=== PATIENT | male | born 1950 | race Caucasian/White ===

== ENCOUNTER 2023-06-08 06:49 | Inpatient (IN) ==
--- NOTE | 2023-06-08 07:19 | Emergency Department Note ---
Impression & Plan Acute GI bleeding ED Provider Note NAME: JACLYN VALDEZ AGE: 72 SEX: Male INFORMANT: Patient ED PROVIDER(S): Travis Johnston MD CHIEF COMPLAINT: GI bleed PLAN: Disposition: Admitted Outpatient prescription management: none Referral: None MEDICAL DECISION MAKING: Patient presented because a history of GI bleed. Record review indicated he had a bleed while on Eliquis last year. Patient was transfused at that time. Patient is hemodynamically stable. He did have a bloody bowel movement in the emergency department. Patient had labs obtained. ECG showed a sinus rhythm. Consultation was made with the [facility] hospitalist. Case discussed. Patient will be admitted for further management CT imaging did show some possible intraluminal bleeding within the colon. Care/management discussed with: central supply manager Level of care consideration(s): After review of the information above and other included data, I feel the patient requires escalation of care to admission. Triage Nursing notes: reviewed and agree them. Vital Signs: reviewed and remarkable for no significant abnormalities Additional History obtained from: none Chronic Medical/Social Conditions affecting care: Plavix use, history of GI bleed Prior/ Outside/ External records reviewed: none Differential Diagnosis: Diverticulosis, AVM, coagulopathy, colitis, inflammatory bowel disease, malignancy, Clair-Walters tear, esophagitis, peptic ulcer disease, variceal bleed, gastritis, epistaxis, fissure, hemorrhoids, as well as other pathologies. Diagnostics, independently interpreted by me: ECG: Twelve-lead ECG reveals a normal sinus rhythm at 64 bpm right bundle branch block. No ST elevation Cardiac Monitoring: Cardiac monitoring ordered by me: The patient was placed on continuous cardiac monitoring and observed. It revealed a normal sinus rhythm at 68 beats per minute without ectopy or evidence of dysrhythmia. Medical decision rules: none Imaging studies: I refer you to the EMR for further details. HPI: 72 year old Male arrives for evaluation of rectal bleeding. This started this morning. Patient states that he had a moderately loose bloody bowel movement. Patient had a second episode after arrival here. He has a history of GI bleed requiring transfusion. At that point he was on Eliquis. He is no longer on Eliquis as he had a watchman placed. Patient states he had some abdominal cramping but denies any other complaints. Discomfort was rated at 2/10. Pt denies LOC, headache, fevers, chills, diaphoresis, visual changes, neck pain, chest pain, breathing difficulties, nausea, vomiting, abdominal pain, back pain, melena, urinary symptoms, numbness, weakness, lymphadenopathy, rash, or other complaints. PAST MEDICAL HISTORY: See Below, A-fib, GI bleed PAST SURGICAL HISTORY: See Below, SOCIAL HISTORY: See Below, HOME MEDICATIONS: See Below ALLERGIES: See Below VITALS: See Below PHYSICAL EXAMINATION: GENERAL: Awake, alert, well-appearing, in no distress HENT: Normocephalic, atraumatic. Oropharynx unremarkable. EYES: Normal conjunctiva. Sclera non-icteric. NECK: Inspection normal. Non-tender. Supple. No nuchal rigidity. FROM. No masses. RESPIRATORY: Clear to auscultation. No wheezes. No rales. Normal respiratory effort. CARDIAC: Normal rate. Normal rhythm. No murmurs. No rubs. Extremities warm and well perfused. Pulses equal. No JVD. GI: Soft, non-distended. No tenderness to palpation. No rebound or guarding. No masses. RECTAL: Deferred. Hemoccult s positive stool MUSCULOSKELETAL: Atraumatic. Chest examination reveals no tenderness. The back is symmetrical on inspection without obvious abnormality. There is no CVA tenderness to palpation. No joint edema. LOWER EXTREMITIES: Calves are equal size bilaterally and non-tender. No edema. No discoloration. NEURO: Normal sensorium. No sensory or motor deficits noted. SKIN: No rash or jaundice noted. PROCEDURES: none CRITICAL CARE: none OBSERVATION NOTE: none Past Med/Surg History Social History Smoking Status: Never smoker Hx Alcohol Use: No Hx Substance Use: No Preferred Language: Ivorian Communication Ability: Effective Vamp Throater Required: No Beliefs That Will Affect Care: None Current Living Situation: Spouse Feels Safe at Home: Yes Safety Concerns: Feels Safe At This Time Allergies Allergies Allergy/AdvReac Type Severity Reaction Status Date / Time [place]gton-NXP-GyS Reductase AdvReac Unknown Verified 04/02/23 14:30 Inhibitor Home Meds Home Medications Medication Instructions Recorded Confirmed aspirin 81 mg tablet,delayed 81 mg PO DAILY 04/02/23 06/08/23 release (Adult Aspirin Regimen) blood-glucose sensor (Dexcom G6 04/02/23 04/02/23 Sensor device) clopidogrel 75 mg tablet (Plavix) 75 mg PO DAILY 04/02/23 06/08/23 diltiazem HCl 180 mg 180 mg PO DAILY 04/02/23 06/08/23 capsule,extended release 24 hr ezetimibe 10 mg tablet (Zetia) 10 mg PO DAILY 04/02/23 06/08/23 fluorouracil 5 % topical cream 1 applic topical BID 04/02/23 06/08/23 (Efudex) insulin glargine 100 unit/mL 20 unit subcut DAILY 04/02/23 06/08/23 subcutaneous solution levothyroxine 25 mcg capsule 25 mcg PO DAILY 04/02/23 06/08/23 losartan 25 mg tablet 25 mg PO DAILY 04/02/23 06/08/23 montelukast 10 mg tablet 10 mg PO DAILY 04/02/23 06/08/23 sotalol 80 mg tablet 80 mg PO BID 04/02/23 06/08/23 tamsulosin 0.4 mg capsule 0.4 mg PO DAILY 04/02/23 06/08/23 albuterol sulfate 90 mcg/actuation See Rx Instructions .Route .COMPLEX 06/08/23 06/08/23 aerosol inhaler fluticasone 250 mcg-salmeterol 50 1 inh inhalation AMHS 06/08/23 06/08/23 mcg/dose blistr powdr for inhalation Previous Rx's Medication Instructions Recorded lorazepam 1 mg tablet 1 mg PO DAILY PRN Pre vasectomy 04/23/23 procedure #1 tab finasteride 5 mg tablet 5 mg PO DAILY #90 tabs 06/05/23 Results & Data (ED) Vital Signs Vital Signs - 24 hr 06/08/23 06:58 06/08/23 07:07 06/08/23 07:55 Temperature 36.8 C Temperature Source Temporal Artery Scan Pulse Rate 68 70 Pulse Rate from SpO2 Sensor 69 Respiratory Rate 14 18 Respiratory Effort / Characteristics Non-Labored Spontaneous Respiratory Depth Normal Blood Pressure 157/84 H Blood Pressure Mean 108 Pulse Oximetry 99 98 99 Oxygen Delivery Method Room Air Room Air Sepsis New/Unexplained Change in Mental Status No Sepsis Action Taken by Nursing No Action Required 06/08/23 08:00 06/08/23 08:22 06/08/23 08:30 Temperature Temperature Source Pulse Rate 66 73 73 Pulse Rate from SpO2 Sensor 66 Respiratory Rate 14 12 19 Respiratory Effort / Characteristics Respiratory Depth Blood Pressure Blood Pressure Mean Pulse Oximetry 99 Oxygen Delivery Method Sepsis New/Unexplained Change in Mental Status Sepsis Action Taken by Nursing 06/08/23 08:35 Temperature Temperature Source Pulse Rate 76 Pulse Rate from SpO2 Sensor Respiratory Rate Respiratory Effort / Characteristics Respiratory Depth Blood Pressure Blood Pressure Mean Pulse Oximetry Oxygen Delivery Method Sepsis New/Unexplained Change in Mental Status Sepsis Action Taken by Nursing Laboratory Data 06/08/23 14:22 06/08/23 07:06 Lab Results 06/08/23 06/08/23 06/08/23 Range/Units 07:06 07:07 07:28 WBC 7.73 (4.8-10.8) K/ul RBC 4.45 L (4.70-6.10) M/uL Hgb 13.7 L (14.0-18.0) g/dl Hct 39.6 L (42.0-52.0) % MCV 89.0 (80.0-100.0) fL MCH 30.8 (25.0-34.0) pg MCHC 34.6 (32.0-36.0) g/dL RDW Std Deviation 45.7 (36.4-46.3) fL RDW Coeff of Lance 13.9 (11.5-14.5) % Plt Count 221 (130-400) K/uL MPV 9.2 L (9.4-12.4) fL Immature Gran % (Auto) 0.4 % Neut % (Auto) 59.1 % Lymph % (Auto) 22.3 % [place] % (Auto) 8.9 % Eos % (Auto) 7.6 % Baso % (Auto) 1.7 % Neut # (Auto) 4.57 (1.40-6.50) K/uL Lymph # (Auto) 1.72 (1.20-3.40) K/uL [place] # (Auto) 0.69 H (0.11-0.59) K/uL Eos # (Auto) 0.59 H (0.00-0.50) K/uL Baso # (Auto) 0.13 (0.00-0.20) K/uL Immature Gran # (Auto) 0.03 (0.01-0.20) K/uL PT 10.9 (9.0-12.0) Seconds INR 1.0 (0.9-1.1) APTT 28 (21-31) Seconds PTT Ratio 1.0 Sodium 132 L (136-145) mmol/L Potassium 4.3 (3.5-5.1) mmol/L Chloride 98 (98-107) mmol/L Carbon Dioxide 27 (21-32) mmol/L Anion Gap 7 (3-11) BUN 28 H (6-23) mg/dl Creatinine 0.86 (0.6-1.4) mg/dl Est Cr Clr Drug Dosing 68.5 ml/min Est GFR ( Amer) 101.1 ml/min Est GFR (Non-Af Amer) 87.2 ml/min BUN/Creatinine Ratio 32.6 H (10-20) Glucose 181 H (70-99(Fasting)) mg/dl Calcium 9.2 (8.6-10.3) mg/dl Total Bilirubin 0.5 (0.2-1.0) mg/dl AST 13 (13-39) U/L ALT 13 (7-52) U/L Alkaline Phosphatase 52 (34-104) U/L Total Protein 7.2 (6.0-8.3) gm/dl Albumin 4.4 (3.4-5.0) gm/dl Globulin 2.8 (2.5-4.0) gm/dl Albumin/Globulin Ratio 1.6 (0.9-2) POC Stool Occult Blood Positive A (Negative) Blood Type B Positive Blood Type Recheck Antibody Screen NEGATIVE Crossmatch See Detail 06/08/23 Range/Units 08:22 WBC (4.8-10.8) K/ul RBC (4.70-6.10) M/uL Hgb (14.0-18.0) g/dl Hct (42.0-52.0) % MCV (80.0-100.0) fL MCH (25.0-34.0) pg MCHC (32.0-36.0) g/dL RDW Std Deviation (36.4-46.3) fL RDW Coeff of Lance (11.5-14.5) % Plt Count (130-400) K/uL MPV (9.4-12.4) fL Immature Gran % (Auto) % Neut % (Auto) % Lymph % (Auto) % [place] % (Auto) % Eos % (Auto) % Baso % (Auto) % Neut # (Auto) (1.40-6.50) K/uL Lymph # (Auto) (1.20-3.40) K/uL [place] # (Auto) (0.11-0.59) K/uL Eos # (Auto) (0.00-0.50) K/uL Baso # (Auto) (0.00-0.20) K/uL Immature Gran # (Auto) (0.01-0.20) K/uL PT (9.0-12.0) Seconds INR (0.9-1.1) APTT (21-31) Seconds PTT Ratio Sodium (136-145) mmol/L Potassium (3.5-5.1) mmol/L Chloride (98-107) mmol/L Carbon Dioxide (21-32) mmol/L Anion Gap (3-11) BUN (6-23) mg/dl Creatinine (0.6-1.4) mg/dl Est Cr Clr Drug Dosing ml/min Est GFR ( Amer) ml/min Est GFR (Non-Af Amer) ml/min BUN/Creatinine Ratio (10-20) Glucose (70-99(Fasting)) mg/dl Calcium (8.6-10.3) mg/dl Total Bilirubin (0.2-1.0) mg/dl AST (13-39) U/L ALT (7-52) U/L Alkaline Phosphatase (34-104) U/L Total Protein (6.0-8.3) gm/dl Albumin (3.4-5.0) gm/dl Globulin (2.5-4.0) gm/dl Albumin/Globulin Ratio (0.9-2) POC Stool Occult Blood (Negative) Blood Type Blood Type Recheck B Positive Antibody Screen Crossmatch Administered Medications Diltiazem HCl (Diltiazem Hcl 180 Mg Capcr) 180 mg PO DAILY [facility] Stop: 07/08/23 10:59 Last Admin: 06/08/23 13:18 Dose: 180 mg Documented By: Karey Ezetimibe (Ezetimibe 10 Mg Tab) 10 mg PO DAILY RENETTA Stop: 07/08/23 10:29 Last Admin: 06/08/23 13:19 Dose: 10 mg Documented By: JABARI Finasteride (Finasteride 5 Mg Tab) 5 mg PO DAILY R[facility]ETTA Stop: 07/08/23 10:29 Last Admin: 06/08/23 13:18 Dose: 5 mg Documented By: JABARI Pantoprazole Sodium 40 mg/ (Dextrose) 100 mls @ 20 mls/hr IV Q5H RENETTA Stop: 07/08/23 08:29 Last Admin: 06/08/23 13:33 Dose: 8 mg/hr, 20 mls/hr Documented By: Infusion: 06/08/23 13:33 Dose: Infused Documented By: Admin: 06/08/23 09:12 Dose: 8 mg/hr, 20 mls/hr Documented By: VIOLA Levothyroxine Sodium (Levothyroxine Sodium 25 Mcg Tablet) 25 mcg PO DAILYBB RENETTA Stop: 07/08/23 10:29 Last Admin: 06/08/23 13:19 Dose: 25 mcg Documented By: JABARI Sotalol HCl (Sotalol Hcl 80 Mg Tab) 40 mg PO BID RENETTA Stop: 07/08/23 10:29 Last Admin: 06/08/23 13:18 Dose: 40 mg Documented By: JABARI Discontinued Medications Sodium Chloride (Nss) 1,000 mls @ 125 mls/hr IV .Q8H STA Stop: 06/08/23 15:11 Last Admin: 06/08/23 07:37 Dose: 125 mls/hr Documented By: VIOLA Famotidine (Pepcid 20mg Iv Push) 20 mg in 5 mls @ 2.5 mls/min IV NOW STA Stop: 06/08/23 08:04 Last Admin: 06/08/23 08:48 Dose: 2.5 mls/min Documented By: VIOLA Pantoprazole Sodium 80 mg/ (Dextrose) 120 mls @ 480 mls/hr IV NOW ONE Stop: 06/08/23 08:17 Last Infusion: 06/08/23 09:20 Dose: Infused Documented By: Admin: 06/08/23 08:49 Dose: 480 mls/hr Documented By: VIOLA Ioversol (Optiray 320 100ml) 93 ml IV ONCE ONE Stop: 06/08/23 08:19 Last Admin: 06/08/23 08:18 Dose: 93 ml Documented By: GEGE Ioversol (Optiray 320 125ml) 119 ml IV ONCE ONE Stop: 06/08/23 12:22 Last Admin: 06/08/23 12:22 Dose: 119 ml Documented By: HERMINIO Pantoprazole Sodium (Pantoprazole Bolus/Drip) 1 each IV NOW STA Stop: 06/08/23 08:04 Last Admin: 06/08/23 09:12 Dose: Not Given Documented By: VIOLA Imaging Data Radiologist's Impression: Abdomen/Pelvis CT 06/08/23 07:[address] WITH IV CONTRAST CT DOSE: 850.01 mGy.cm HISTORY: GI bleed. TECHNIQUE: Multiaxial CT images of the abdomen and pelvis were performed following the use of intravenous contrast. A dose lowering technique was utilized adhering to the principles of ALARA. COMPARISON STUDY: None. FINDINGS: The lung bases are clear. No pneumoperitoneum. No pneumatosis. Levoscoliosis and degenerative changes seen within the lumbar spine. Mitral annulus and coronary artery calcifications are noted. Mild diastases of the rectus abdominous muscles without evidence for a ventral hernia. There is a small gallstone noted. No gallbladder wall thickening. The main portal vein is patent. The liver, pancreas, spleen, and adrenal glands unremarkable. There is a 5 mm hypodense lesion within the right kidney. This is technically too small to characterize but there is a cyst. The left kidney enhances normally. No hydronephrosis. There is a 3.2 cm infrarenal abdominal aortic aneurysm. 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 No retroperitoneal or pelvic lymphadenopathy. No pelvic free fluid. Normal bladder. The prostate gland is enlarged. Colonic diverticulosis. No evidence for acute diverticulitis. No bowel wall thickening or obstruction. Normal appendix. Small amount of intraluminal layering hyperdense focus seen within the distal descending colon as seen on images 148 through 154. This is indeterminate and may represent bowel contents. IMPRESSION: 1. No bowel wall thickening or obstruction. 2. Colonic diverticulosis. No evidence for acute diverticulitis. 3. Small amount of intraluminal layering hyperdense focus seen within the distal descending colon as described above. This is indeterminate and may represent bowel contents. Active arterial extravasation in the setting of a diverticular bleed or less likely angiodysplasia are also considered in the differential diagnosis. 4. Cholelithiasis. 5. A 3.2 cm infrarenal abdominal aortic aneurysm. ACT 112: Negative or not required by law. Electronically signed by: Harry Fan M.D. 06/08/2023 9:08 AM Discharge Plan Visit Data Chief Complaint: GI Bleed ED Provider: Travis Johnston Discharge Problem: Acute GI bleeding Patient Disposition: Admitted As Inpatient Discharge Instructions Interventions: ED Discharge Assessment Last Done: 06/08/23 10:16
[2023-06-08] MEDS ORDERED: SODIUM CHLORIDE 0.9% 250 ML IV PRN (07:24)
[2023-06-08 07:33] LABS: Basophils # (auto) 0.13 K/uL (0.00-0.20); Basophils % (auto) 1.7 %; Eosinophils # (auto) 0.59 K/uL (0.00-0.50); Eosinophils % (auto) 7.6 %; Hematocrit (blood only) 39.6 % (42.0-52.0); Hemoglobin 13.7 g/dl (14.0-18.0); Immature Granulocytes # (auto) 0.03 K/uL (0.01-0.20); Immature Granulocytes % (auto) 0.4 %; Lymphocytes # (auto) 1.72 K/uL (1.20-3.40); Lymphocytes % (auto) 22.3 %; Mean Corpuscular Hemoglobin 30.8 pg (25.0-34.0); Mean Corpuscular Hgb Conc 34.6 g/dL (32.0-36.0); Mean Platelet Volume 9.2 fL (9.4-12.4); Monocytes # (auto) 0.69 K/uL (0.11-0.59); Monocytes % (auto) 8.9 %; Neutrophils # (auto) 4.57 K/uL (1.40-6.50); Neutrophils % (auto) 59.1 %; Platelet Count 221 K/uL (130-400); RDW Coefficient of Variation 13.9 % (11.5-14.5); RDW Standard Deviation 45.7 fL (36.4-46.3); Red Blood Count 4.45 M/uL (4.70-6.10); White Blood Count 7.73 K/ul (4.8-10.8)
[2023-06-08] MEDS: SODIUM CHLORIDE 0.9% 1,000 ML IV STA (07:37)
[2023-06-08 07:41] LABS: Partial Thromboplastin Time 28 Seconds (21-31); Prothrombin Time 10.9 Seconds (9.0-12.0)
[2023-06-08 07:50] LABS: Albumin Globulin Ratio 1.6 (0.9-2); Albumin Level 4.4 gm/dl (3.4-5.0); BUN Creatinine Ratio 32.6 (10-20); Bilirubin,Total 0.5 mg/dl (0.2-1.0); Calcium 9.2 mg/dl (8.6-10.3); Creatinine Clr Calc Pharmacy 68.5 ml/min; Est GFR (African American) 101.1 ml/min; Est GFR (Non-African American) 87.2 ml/min; Globulin 2.8 gm/dl (2.5-4.0); Potassium 4.3 mmol/L (3.5-5.1); Total Protein 7.2 gm/dl (6.0-8.3)
[2023-06-08] MEDS: OPTIRAY 320 100ml IV ONE (08:18)
--- NOTE | 2023-06-08 08:29 | History & Physical Report ---
Date of Service June 08, 2023 Assessment & Plan (1) Lower GI bleeding: (2) Paroxysmal atrial fibrillation: (3) Presence of Watchman left atrial appendage closure device: Plan Mr. Winn is a 72 year old year old male with paroxysmal atrial fibrillation and flutter status post ablations on low dose sotalol, and diltiazem, now s/p watchman's device 02/2023, prior GIB requiring transfusions, DMTII, COPD, HTN, BPH and other medical conditions listed belowe admitted due to melena. #Melena, c/f lower GIB #Prior GIB requiring transfusion #Acute on Chronic normocytic anemia Hgb baseline 13~, stable at this time, however, likely downtrend GI bleeding 11/2022,s/p 3 units of packed red blood cells discontinuation of anticoagulation (Eliquis), source of bleeding not identified. Recommended to be on ASA/plavix x 6 months, now s/p ~3 months watchman -Continue PPI drip -Repeat HH this afternoon consistent with blood loss -GI consult - It appears that he was having active bleeding on the CT earlier today, however, there was no evidence of active bleeding on the CTA this afternoon. -Would recommend supportive care, CLD at this time -Cards to discuss DAPT, routine recommendation 6months, however in this situation plavix single therapy or CTM? -Given melena aspirin clopidogrel currently on hold. When bleeding resolves, would consider moving forward with monotherapy with aspirin without clopidogrel. Patient is already 3 months removed from device, and aspirin monotherapy would be the typical plan 6 months post device. -Trend CBC, transfuse if symptomatic or hgb <7 #Paroxysmal atrial fibrillation /flutter s/p watchman 03/09/2023, watchman at [facility], recent JAY revealed stable device with no thrombus or leak Continue sotalol 40 mg twice a day along with Diltiazem 180 mg/day. Cr. stable, 0.8 on admission #Mild to moderate mitral regurgitation. Compensated #Hypertension: Controlled. Hold losartan iso GIB, resume as able #Dyslipidemia with statin intolerance. Continue ezetimibe. #Hypothyroidism -Synthroid #Chronic hyponatremia Stable, at baseline low 130s #BPH Continue finasteride and tamsulosin monitor for retention #COPD Resume home inhaler #DMTII SSI DVT SCDs ambulate Med tele Admission and Anticipated Discharge Date Admission Date: Time spent evaluating patient, direct bedside care, chart review, placing orders, interpretation of diagnostic studies, discussion with consultants, patient, and family members, as well as other required patient management activities is 60 minutes. History of Present Illness Chief Complaint: GIB Primary Care Provider: Sylvia Quezada MD Mr. Oliver Winn is a 72 year old gentleman with past medical history remarkable for paroxysmal atrial fibrillation and flutter status post ablations on low dose sotalol, and diltiazem, now s/p watchman's device 02/2023, prior GIB requiring transfusions, DMTII, COPD, HTN, BPH and other comorbidties who presented to [facility] ED due to bloody bowel movements. Patient states he noted red, dark stools late last evening that were much looser in consistency. He denies any recent GI illness, GERD/reflux concerns, or other acute issues. He states he has been in a good state of health and tolerated recent watchman placement, which was pursued due to GI bleeding that never revealed a clear cause. Per OP chart review: "Patient notes hospitalization at [facility], GI bleeding event in November 2022. Required transfusion of 3 U pRBC's. Eliquis anticoagulation discontinued. Source of bleeding not determined as per patient. Patient status post March 09, 2023 left atrial appendage closure with a 24 mm WATCHMAN closure device by Dr. Alban Christina at [facility]." Patient is no longer on eliquis, now on ASA/Plavix. Patient denies chest pain, palpitations, or other acute concerns. Patient reports vague intermittent low abdominal discomfort, but otherwise no post/pre prandial epigastric pains, no NSAID use, no other GI concerns out side of bowel movements In the ED, vitals were notable for BP of 140s-150s, HR of *60s-80s, and O2 sat of mid 90s on room air Imaging revealed a focus in the distal descending colon that may represent bowel contents vs active arterial extravasation vs angiodysplasia. ED interventions: IVF Labs with stable hgb of 13, baseline Consultants: GI, Cards Patient to be admitted [facility] for further evaluation and management of GIB Allergies Allergy/AdvReac Type Severity Reaction Status Date / Time [id number] Reductase AdvReac Unknown Verified 04/02/23 14:30 Inhibitor Home Medications Medication Instructions Recorded Confirmed Type aspirin 81 mg tablet,delayed 81 mg PO DAILY 04/02/23 06/08/23 History release (Adult Aspirin Regimen) blood-glucose sensor (Dexcom G6 04/02/23 04/02/23 History Sensor device) clopidogrel 75 mg tablet (Plavix) 75 mg PO DAILY 04/02/23 06/08/23 History diltiazem HCl 180 mg 180 mg PO DAILY 04/02/23 06/08/23 History capsule,extended release 24 hr ezetimibe 10 mg tablet (Zetia) 10 mg PO DAILY 04/02/23 06/08/23 History insulin glargine 100 unit/mL 20 unit subcut DAILY 04/02/23 06/08/23 History subcutaneous solution levothyroxine 25 mcg capsule 25 mcg PO DAILY 04/02/23 06/08/23 History losartan 25 mg tablet 25 mg PO DAILY 04/02/23 06/08/23 History montelukast 10 mg tablet 10 mg PO DAILY 04/02/23 06/08/23 History sotalol 80 mg tablet 80 mg PO BID 04/02/23 06/08/23 History tamsulosin 0.4 mg capsule 0.4 mg PO DAILY 04/02/23 06/08/23 History lorazepam 1 mg tablet 1 mg PO DAILY PRN Pre vasectomy 04/23/23 06/08/23 Rx procedure #1 tab finasteride 5 mg tablet 5 mg PO DAILY #90 tabs 06/05/23 06/08/23 Rx albuterol sulfate 90 mcg/actuation See Rx Instructions .Route .COMPLEX 06/08/23 06/08/23 History aerosol inhaler fluticasone 250 mcg-salmeterol 50 1 inh inhalation AMHS 06/08/23 06/08/23 History mcg/dose blistr powdr for inhalation Past Med/Surg History Social History Smoking Status: Never smoker Hx Alcohol Use: No Hx Substance Use: No Preferred Language: [place] Communication Ability: Effective Shadow Graph Weight Operator Required: No Beliefs That Will Affect Care: None Current Living Situation: Spouse Feels Safe at Home: Yes Safety Concerns: Feels Safe At This Time Review of Systems Review of Systems: Constitutional: (-) fever/chills, (-) recent loss of weight, (-) appetite changes, (-) night sweats. Head: (-) headache, (-) dizziness. Eye: (-) blurring of vision, (-) double vision, (-) redness. Ear: (-) hearing loss, (-) discharge, (-) vertigo Nose: (-) discharge, (-) bleeding, (-) congestion, (-) post nasal drip. Throat: (-) sore throat, (-) hoarseness of voice, (-) odynophagia. Cardiovascular: (-) chest pain, (-) palpitations, (-) syncope, (-) orthopnea, (- ) PND, (-) leg swelling. Respiratory: (-) shortness of breath, (-) cough, (-) wheezing, (-) hemoptysis. Neuro: (-) weakness in extremities, (-) numbness, (-) tingling, (-) tremor. Gastrointestinal: (+) belly pain, (-) belly distension, (-) nausea, (-) vomiting, (-) diarrhea, (-) constipation ++melena/hematochezia Genitourinary: (-) hematuria, (-) dysuria, (-) polyuria, (-) hesitancy, (-) frequency, (-) urinary incontinence. Musculoskeletal: (-) myalgia, (-) arthralgia. Skin: (-) rashes. Endocrine: (-) heat/cold intolerance. Physical Exam Physical Exam: GENERAL APPEARANCE: AxOx4, generally well-appearing male, no acute distress. HEENT: NC, AT. MMM. EOMI, clear conjunctiva, oropharynx clear. NECK: Supple without lymphadenopathy. No stiffness or restricted ROM. HEART: Normal rate and regular rhythm, normal S1/S1, no m/r/g LUNGS: CTAB, moving air well. No crackles or wheezes are heard. ABDOMEN: Soft, nontender, nondistended with good bowel sounds heard, slight ventral protuberance from hernia EXTREMITIES: Without cyanosis, clubbing or edema. NEUROLOGICAL: Grossly nonfocal. Alert and oriented, moving all 4 extremities. CN not formally tested but appear grossly intact. Observed to ambulate with normal gait. Skin: Warm and dry without any rash. Results & Data Results & Data Vital Signs (Past 12 Hours) Vital Signs Temp Pulse Resp BP Pulse Ox O2 Del Method 06/08/23 07:07 98 Room Air 06/08/23 06:58 36.8 C 68 14 157/84 H 99 Room Air Laboratory Results Short CBC 06/08/23 06/08/23 Range/Units 07:06 14:22 WBC 7.73 (4.8-10.8) K/ul Hgb 13.7 L 11.9 L (14.0-18.0) g/dl Hct 39.6 L 35.2 L (42.0-52.0) % Plt Count 221 (130-400) K/uL BMP 06/08/23 07:06 Sodium 132 L Potassium 4.3 Chloride 98 Carbon Dioxide 27 BUN 28 H Creatinine 0.86 Glucose 181 H Calcium 9.2 Liver Function 06/08/23 Range/Units 07:06 Total Bilirubin 0.5 (0.2-1.0) mg/dl AST 13 (13-39) U/L ALT 13 (7-52) U/L Alkaline Phosphatase 52 (34-104) U/L Albumin 4.4 (3.4-5.0) gm/dl Diagnostic Findings Abdomen/Pelvis CT 06/08/23 07:[address] WITH IV CONTRAST CT DOSE: 850.01 mGy.cm HISTORY: GI bleed. TECHNIQUE: Multiaxial CT images of the abdomen and pelvis were performed following the use of intravenous contrast. A dose lowering technique was utilized adhering to the principles of ALARA. COMPARISON STUDY: None. FINDINGS: The lung bases are clear. No pneumoperitoneum. No pneumatosis. Levoscoliosis and degenerative changes seen within the lumbar spine. Mitral annulus and coronary artery calcifications are noted. Mild diastases of the rectus abdominous muscles without evidence for a ventral hernia. There is a small gallstone noted. No gallbladder wall thickening. The main portal vein is patent. The liver, pancreas, spleen, and adrenal glands unremarkable. There is a 5 mm hypodense lesion within the right kidney. This is technically too small to characterize but there is a cyst. The left kidney enhances normally. No hydronephrosis. There is a 3.2 cm infrarenal abdominal aortic aneurysm. 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 No retroperitoneal or pelvic lymphadenopathy. No pelvic free fluid. Normal bladder. The prostate gland is enlarged. Colonic diverticulosis. No evidence for acute diverticulitis. No bowel wall thickening or obstruction. Normal appendix. Small amount of intraluminal layering hyperdense focus seen within the distal descending colon as seen on images 148 through 154. This is indeterminate and may represent bowel contents. IMPRESSION: 1. No bowel wall thickening or obstruction. 2. Colonic diverticulosis. No evidence for acute diverticulitis. 3. Small amount of intraluminal layering hyperdense focus seen within the distal descending colon as described above. This is indeterminate and may represent bowel contents. Active arterial extravasation in the setting of a diverticular bleed or less likely angiodysplasia are also considered in the differential diagnosis. 4. Cholelithiasis. 5. A 3.2 cm infrarenal abdominal aortic aneurysm. ACT 112: Negative or not required by law. Electronically signed by: Harry Fan M.D. 06/08/2023 9:08 AM Abdomen/Pelvis CTA 06/08/23 11:39 CT ANGIOGRAPHY OF THE ABDOMEN AND PELVIS CLINICAL HISTORY: GI bleeding COMPARISON STUDY: CT of the abdomen and pelvis performed earlier today. TECHNIQUE: Helical axial images of the abdomen and pelvis were obtained during her ureteral phase following intravenous injection of 119 cc of Optiray 320 IV. Sagittal and coronal reconstructions were viewed as well as maximal intensity projections on an independent 3-D workstation. Automated exposure control was utilized for the study. A dose lowering technique was utilized adhering to the principles of ALARA. FINDINGS: Lung bases are unremarkable. No pneumatosis, free air or portal venous gas is present. There is extensive aortoiliac atherosclerotic plaque. A 3.2 cm infrarenal abdominal aortic aneurysm is present. 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 Right common iliac artery measures 2.4 cm. The left measures 2.1 cm. The major vessels are patent. There is also extensive plaque within the branch vessels. No intraluminal foci of contrast are identified within the bowel on this exam. The intraluminal hyperdensity within the descending colon on CT performed earlier today is no longer identified. This extensive colonic diverticulosis without evidence for acute diverticulitis. There is no evidence for a bowel obstruction. No bowel wall thickening is identified. The appendix is normal. There is no lymphadenopathy. There are no fluid collections. Small gallstone within the gallbladder is present. Arterial phase images of liver, spleen, adrenal glands and pancreas are unremarkable. Contrast within the bladder from recent contrast- enhanced CT is present. The prostate is enlarged, measuring 5.5 cm in transverse diameter. IMPRESSION: 1. No intraluminal contrast within the bowel to suggest active GI bleed on this exam. The hyperdense focus within the descending colon on CT performed earlier today is no longer identified. Therefore, active GI bleed on that exam is favored over intraluminal contents. Lack of visualization on current study could be due to the phase of enhancement or cessation of GI bleed. 2. Extensive colonic diverticulosis. No evidence for acute diverticulitis. 3. No bowel obstruction. No bowel wall thickening. 4. 3.2 cm infrarenal abdominal aortic aneurysms. ACT 112: Negative or not required by law. Electronically signed by: Louis Gaines M.D. 06/08/2023 2:13 PM Medications Administered D3 2000 50 MCG (1999 UT) Oral Capsule (Cholecalciferol) Folic Acid 400 MCG Oral Tablet Fluticasone-Salmeterol 250-50 MCG/ACT Inhalation Aerosol Powder Breath Activated (Wixela Inhub) Losartan Potassium 25 MG Oral Tablet (Cozaar) Omeprazole 20 MG Oral Capsule Delayed Release (PriLOSEC) Sotalol HCl 80 MG Oral Tablet (Betapace) Insulin Lispro (1 Unit Dial) 100 UNIT/ML Subcutaneous Solution Pen-injector (HumaLOG KwikPen) Tamsulosin HCl 0.4 MG Oral Capsule (Flomax) Finasteride 5 MG Oral Tablet (Proscar) Albuterol Sulfate (2.5 MG/3ML) 0.083% Inhalation Nebulization Solution (Proventil) Albuterol Sulfate HFA 108 (90 Base) MCG/ACT Inhalation Aerosol Solution Aspirin 81 MG Oral Tablet Chewable Clopidogrel Bisulfate 75 MG Oral Tablet (pLAVix) Insulin Glargine 100 UNIT/ML Subcutaneous Solution Pen-injector (Lantus) Montelukast Sodium 10 MG Oral Tablet (Singulair) Ezetimibe 10 MG Oral Tablet (Zetia) Levothyroxine Sodium 25 MCG Oral Capsule (Tirosint) Fluorouracil 5 % External Cream (Efudex) dilTIAZem HCl ER Beads 180 MG Oral Capsule Extended Release 24 Hour Droplet Pen [place] 32G X 4 MM (Insulin Pen Needle) Acetaminophen 500 MG Oral Tablet Dexcom G6 Sensor ReliOn Lancets Micro-Thin 33G ReliOn True Metrix Test Strips In Vitro Strip (Glucose Blood) Home Medications Medication Instructions Recorded Confirmed Last Taken aspirin 81 mg tablet,delayed 81 mg PO DAILY 04/02/23 06/08/23 Unknown release (Adult Aspirin Regimen) blood-glucose sensor (Dexcom G6 04/02/23 04/02/23 Unknown Sensor device) clopidogrel 75 mg tablet (Plavix) 75 mg PO DAILY 04/02/23 06/08/23 Unknown diltiazem HCl 180 mg 180 mg PO DAILY 04/02/23 06/08/23 Unknown capsule,extended release 24 hr ezetimibe 10 mg tablet (Zetia) 10 mg PO DAILY 04/02/23 06/08/23 Unknown insulin glargine 100 unit/mL 20 unit subcut DAILY 04/02/23 06/08/23 Unknown subcutaneous solution levothyroxine 25 mcg capsule 25 mcg PO DAILY 04/02/23 06/08/23 Unknown losartan 25 mg tablet 25 mg PO DAILY 04/02/23 06/08/23 Unknown montelukast 10 mg tablet 10 mg PO DAILY 04/02/23 06/08/23 Unknown sotalol 80 mg tablet 80 mg PO BID 04/02/23 06/08/23 Unknown tamsulosin 0.4 mg capsule 0.4 mg PO DAILY 04/02/23 06/08/23 Unknown lorazepam 1 mg tablet 1 mg PO DAILY PRN Pre vasectomy 04/23/23 06/08/23 Unknown procedure #1 tab finasteride 5 mg tablet 5 mg PO DAILY #90 tabs 06/05/23 06/08/23 Unknown albuterol sulfate 90 mcg/actuation See Rx Instructions .Route .COMPLEX 06/08/23 06/08/23 Unknown aerosol inhaler fluticasone 250 mcg-salmeterol 50 1 inh inhalation AMHS 06/08/23 06/08/23 Unknown mcg/dose blistr powdr for inhalation Active Medications Generic Name Dose Route Start Last Admin Trade Name Freq PRN Reason Stop Dose Admin Diltiazem HCl 180 mg 06/08/23 11:00 06/08/23 13:18 Diltiazem Hcl 180 Mg Capcr PO 07/08/23 10:59 180 mg DAILY RENETTA Administration Ezetimibe 10 mg 06/08/23 10:30 06/08/23 13:19 Ezetimibe 10 Mg Tab PO 07/08/23 10:29 10 mg DAILY RENETTA Administration Finasteride 5 mg 06/08/23 10:30 06/08/23 13:18 Finasteride 5 Mg Tab PO 07/08/23 10:29 5 mg DAILY RENETTA Administration Pantoprazole Sodium 40 mg/ 100 mls @ 20 mls/hr 06/08/23 08:30 06/08/23 13:33 Dextrose IV 07/08/23 08:29 8 mg/hr Q5H RENETTA 20 mls/hr Administration 8 MG/HR Levothyroxine Sodium 25 mcg 06/08/23 10:30 06/08/23 13:19 Levothyroxine Sodium 25 Mcg Tablet PO 07/08/23 10:29 25 mcg DAILYBB RENETTA Administration Sotalol HCl 40 mg 06/08/23 10:30 06/08/23 13:18 Sotalol Hcl 80 Mg Tab PO 07/08/23 10:29 40 mg BID RENETTA Administration
[2023-06-08] MEDS: FAMOTIDINE 20MG IV PUSH 20 MG/5 ML SYR IV STA (08:48)
[2023-06-08] MEDS: PANTOprazole 80 MG in DEXTROSE 5% 100 ML IV ONE (08:49)
--- NOTE | 2023-06-08 09:10 | CT Scan Report ---
ABDOMEN AND PELVIS CT WITH IV CONTRAST CT DOSE: 850.01 mGy.cm HISTORY: GI bleed. TECHNIQUE: Multiaxial CT images of the abdomen and pelvis were performed following the use of intrave nous contrast. A dose lowering technique was utilized adhering to the principles of ALARA. COMPARISON STUDY: None. FINDINGS: The lung bases are clear. No pneumoperitoneum. No pneumatosis. Levoscoliosis and degenerati ve changes seen within the lumbar spine. Mitral annulus and coronary artery calcifications are noted. Mild diastases of the rectus abdominous muscles without evidence for a ventral hernia. There is a sm all gallstone noted. No gallbladder wall thickening. The main portal vein is patent. The liver, pancr eas, spleen, and adrenal glands unremarkable. There is a 5 mm hypodense lesion within the right kidne y. This is technically too small to characterize but there is a cyst. The left kidney enhances normal ly. No hydronephrosis. There is a 3.2 cm infrarenal abdominal aortic aneurysm. Mild aneurysmal dilata tion of the common iliac arteries measuring up to 2 cm. No retroperitoneal or pelvic lymphadenopathy. No pelvic free fluid. Normal bladder. The prostate gland is enlarged. Colonic diverticulosis. No jordan dence for acute diverticulitis. No bowel wall thickening or obstruction. Normal appendix. Small amoun t of intraluminal layering hyperdense focus seen within the distal descending colon as seen on images 148 through 154. This is indeterminate and may represent bowel contents. IMPRESSION: 1. No bowel wall thickening or obstruction. 2. Colonic diverticulosis. No evidence for acute diverticulitis. 3. Small amount of intraluminal layering hyperdense focus seen within the distal descending colon as described above. This is indeterminate and may represent bowel contents. Active arterial extravasatio n in the setting of a diverticular bleed or less likely angiodysplasia are also considered in the dif ferential diagnosis. 4. Cholelithiasis. 5. A 3.2 cm infrarenal abdominal aortic aneurysm. ACT 112: Negative or not required by law. Electronically signed by: Harry Fan M.D. 06/08/2023 9:08 AM
[2023-06-08] MEDS: PANTOprazole 40 MG in DEXTROSE 5% MINI-B 100 ML IV SCH (09:12)
[2023-06-08] MEDS: PANTOPRAZOLE BOLUS/DRIP IV STA (09:12)
[2023-06-08] MEDS ORDERED: POLYETHYLENE (MIRALAX) 17 GM PACK PO PRN (10:16)
[2023-06-08] MEDS ORDERED: MAGNESIUM HYDROXIDE SUSP 30 ML UDC PO PRN (10:16)
[2023-06-08] MEDS ORDERED: ONDANSETRON INJ 2 MG/ML 2 ML VIAL IV PRN (10:16)
--- NOTE | 2023-06-08 12:16 | Cardiology Consultation ---
Date of Consultation June 08, 2023 Assessment & Plan (1) Acute GI bleeding: (2) Paroxysmal atrial fibrillation: (3) Presence of Watchman left atrial appendage closure device: Plan Sinus rhythm in the 60s noted on telemetry. Patient status post Watchman left atrial appendage occlusion device performed on 03/09/2023. Follow up JAY performed 05/04/23 revealed a well-seated Watchman device with no device related thrombus or isaiah-device leak per available report in the Epic record LV size was normal, with low normal LV systolic function reported, EF 50 to 55%. RV size and function were normal. Mild to moderate mitral regurgitation observed along with mild left atrial enlargement. At 10:36 am , I left a voicemail with the [facility] the [facility] , requesting a call to discuss patient's case with Dr Christina or a covering provider to coordinate care, but as of 12:31 pm, I have yet to hear back. The report of the Watchman procedure performed in February,, as reviewed in the [facility] Epic record procedure documents recommendation for anticoagulation (Coumadin versus DOACs versus dual antiplatelet therapy) for 45 days, followed by Aspirin and Plavix for 6 months from day of procedure, followed by Aspirin 81 mg indefinitely. Patient had stable JAY findings in April and remains on dual antiplatelet therapy with ASA and clopidogrel. Given melena aspirin clopidogrel currently on hold. When bleeding resolves, would consider moving forward with monotherapy with aspirin without clopidogrel. Patient is already 3 months removed from device, and aspirin monotherapy would be the typical plan 6 months post device. Anuja Wolf DO History of Present Illness Attending Physician: Naa Yepez MD History of Present Illness Mr Winn is a 72 year old female seen in cardiology consultation per the request of Dr Yepez for advice with regards to antiplatelet therapy. Patient follows with Levi Anderson PA-C of our cardiology group as well as Dr Christina of [facility] and had undergone placement of a Watchman percutaneous left atrial appendage occlusion device performed with Dr. Christina in 03/09/23 due to his history of paroxysmal atrial fibrillation and h/o severe gastrointestinal bleeding preventing use on supervisor intermediates anticoagulation. Patient was seen in cardiology follow up by Mr Rodriguez yesterday. Doing well then and discussed preoperative evaluation for upcoming urology procedure. Overnight patient developed melena with multiple bowel movements, symptoms ongoing. Hemoglobin stable. Blood pressure stable. Medical/cardiac issues 1.Paroxysmal atrial fibrillation/ flutter with very rapid heart rates a.Status post atrial flutter ablation in 2015 b.Status post atrial fibrillation ablation in 2016 c.Chronic antiarrhythmic therapy with sotalol 2.Status post March 09, 2023 left atrial appendage closure with a 24 mm Watchman closure device by Dr. Alban Christina at [facility]. Follow-up transesophageal echocardiography performed on May 04, 2023 revealed a well- seated Watchman device with no device related thrombus or isaiah-device leak. 3.Mild to moderate mitral regurgitation via April 2023 JAY ([facility]) 4.No prior history of myocardial infarction or congestive heart failure 5.Chronic obstructive lung disease /Asthma 6.Type 2 diabetes mellitus with neuropathy 7.Hypertension 8.Right bundle-branch block 9.Dyslipidemia 10.Statin intolerance (intractable headaches) 11.Esophageal stricture status post dilation 12.Hospitalization at [facility], GI bleeding in November 2022 requiring tr ansfusion of 3 U pRBC's. Eliquis anticoagulation discontinued at that time. GI, per documentation, recommended not to resume anticoagulation, or total colectomy. Source of bleeding not determined as per patient. 13.TIAs 14.Hypothyroidism 15.Chronic hyponatremia 16.BPH Allergies Allergy/AdvReac Type Severity Reaction Status Date / Time Hyqrska-[id number]-[id number] Reductase AdvReac Unknown Verified 04/02/23 14:30 Inhibitor Home Medications Medication Instructions Recorded Confirmed Type aspirin 81 mg tablet,delayed 81 mg PO DAILY 04/02/23 04/02/23 History release (Adult Aspirin Regimen) blood-glucose sensor (Dexcom G6 04/02/23 04/02/23 History Sensor device) clopidogrel 75 mg tablet (Plavix) 75 mg PO DAILY 04/02/23 04/02/23 History diltiazem HCl 180 mg 180 mg PO DAILY 04/02/23 04/02/23 History capsule,extended release 24 hr ezetimibe 10 mg tablet (Zetia) 10 mg PO DAILY 04/02/23 04/02/23 History fluorouracil 5 % topical cream 1 applic topical BID 04/02/23 04/02/23 History (Efudex) insulin glargine 100 unit/mL 20 unit subcut DAILY 04/02/23 04/02/23 History subcutaneous solution levothyroxine 25 mcg capsule 25 mcg PO DAILY 04/02/23 04/02/23 History losartan 25 mg tablet 25 mg PO DAILY 04/02/23 04/02/23 History montelukast 10 mg tablet 10 mg PO DAILY 04/02/23 04/02/23 History sotalol 80 mg tablet 80 mg PO BID 04/02/23 04/02/23 History tamsulosin 0.4 mg capsule 0.4 mg PO DAILY 04/02/23 04/02/23 History lorazepam 1 mg tablet 1 mg PO DAILY PRN Pre vasectomy 04/23/23 Rx procedure #1 tab finasteride 5 mg tablet 5 mg PO DAILY #90 tabs 06/05/23 Rx Patient History Social History Smoking Status: Never smoker Hx Alcohol Use: No Hx Substance Use: No Preferred Language: Finnish Communication Ability: Effective Sales Technician Required: No Beliefs That Will Affect Care: None Current Living Situation: Spouse Feels Safe at Home: Yes Safety Concerns: Feels Safe At This Time Review of Systems Review of Systems: All systems reviewed & are unremarkable except as noted in HPI & below Physical Exam Physical Exam: General: no acute distress and stated age Eyes: conjunctiva are pink and non-injected, sclera clear Neck: normal jugular venous pulse, no hepatojugular reflux Chest: normal shape and normal respiratory effort Lungs: clear to auscultation and percussion Cardiac Exam: - regular heart sounds, no murmurs, rubs, or gallops, no jugular venous distention Abdomen: abdomen soft, non-tender, no abnormal masses and no hepatosplenomegaly Musculoskeletal: no gait disturbance, no weakness Extremities: no edema and no cyanosis Neuro:awake, conversant, follows commands, no focal motor deficits Psych: appropriate affect and insight. Results & Data Vital Signs (Past 12 Hours) Vital Signs Temp Pulse Pulse Resp BP BP Pulse Ox 06/08/23 11:50 69 16 146/78 H 99 06/08/23 10:51 71 19 141/75 H 96 06/08/23 10:40 89 22 06/08/23 10:20 68 18 06/08/23 10:18 71 18 06/08/23 10:05 69 17 06/08/23 09:42 74 20 06/08/23 09:30 69 17 169/91 H 06/08/23 09:20 71 13 06/08/23 09:10 68 14 06/08/23 09:06 74 20 111/89 98 06/08/23 09:02 72 17 141/81 H 06/08/23 09:00 68 16 109/91 06/08/23 08:50 68 14 06/08/23 08:47 78 12 06/08/23 08:35 76 06/08/23 08:30 73 19 06/08/23 08:22 73 12 06/08/23 08:00 66 14 99 06/08/23 07:55 70 18 99 06/08/23 07:07 98 06/08/23 06:58 36.8 C 68 14 157/84 H 99 O2 Del Method 06/08/23 11:50 Room Air 06/08/23 10:51 06/08/23 10:40 06/08/23 10:20 06/08/23 10:18 06/08/23 10:05 06/08/23 09:42 06/08/23 09:30 06/08/23 09:20 06/08/23 09:10 06/08/23 09:06 Room Air 06/08/23 09:02 06/08/23 09:00 06/08/23 08:50 06/08/23 08:47 06/08/23 08:35 06/08/23 08:30 06/08/23 08:22 06/08/23 08:00 06/08/23 07:55 06/08/23 07:07 Room Air 06/08/23 06:58 Room Air Laboratory Results Cardiac Enzymes 06/08/23 Range/Units 07:06 AST 13 (13-39) U/L Coagulation 06/08/23 Range/Units 07:06 PT 10.9 (9.0-12.0) Seconds APTT 28 (21-31) Seconds CBC 06/08/23 Range/Units 07:06 WBC 7.73 (4.8-10.8) K/ul RBC 4.45 L (4.70-6.10) M/uL Hgb 13.7 L (14.0-18.0) g/dl Hct 39.6 L (42.0-52.0) % Plt Count 221 (130-400) K/uL Neut # (Auto) 4.57 (1.40-6.50) K/uL Lymph # (Auto) 1.72 (1.20-3.40) K/uL [place] # (Auto) 0.69 H (0.11-0.59) K/uL Eos # (Auto) 0.59 H (0.00-0.50) K/uL Baso # (Auto) 0.13 (0.00-0.20) K/uL Comprehensive Metabolic Panel 06/08/23 Range/Units 07:06 Sodium 132 L (136-145) mmol/L Potassium 4.3 (3.5-5.1) mmol/L Chloride 98 (98-107) mmol/L Carbon Dioxide 27 (21-32) mmol/L BUN 28 H (6-23) mg/dl Creatinine 0.86 (0.6-1.4) mg/dl Glucose 181 H (70-99(Fasting)) mg/dl Calcium 9.2 (8.6-10.3) mg/dl AST 13 (13-39) U/L ALT 13 (7-52) U/L Alkaline Phosphatase 52 (34-104) U/L Total Protein 7.2 (6.0-8.3) gm/dl Albumin 4.4 (3.4-5.0) gm/dl Intake and Output 06/07/23 06/08/23 06/08/23 22:59 06:59 14:59 Intake Total 120 / 120 Balance 120 / 120 Intake: IV 120 / 120 PANTOprazole 80 mg In Dextrose 120 / 120 5% 100 ml @ 480 mls/hr IV NOW ONE Rx#:[id number] Other: Weight 69.1 kg 63.1 kg Weight Measurement Method Built in [facility] Built in [facility] Patient Weight 06/09/23 06:59 Weight 63.1 kg Diagnostic Findings EKG performed as an outpt on 06/07/23: Sinus rhythm at 62 bpm with right bundle branch block, corrected QT interval 466 ms.
[2023-06-08] MEDS: OPTIRAY 320 125ml IV ONE (12:22)
--- NOTE | 2023-06-08 13:01 | Gastrointestinal Consultation ---
Date of Consultation June 08, 2023 Assessment & Plan (1) Lower GI bleeding: Differential includes suspected diverticular bleed based on CT imaging vs diverticulitis vs AVMs vs ulcers vs less likely malignancy vs other. Previous scopes at [facility] in Fall 2022 reportedly did not identify a clear et iology of similar symptoms. -Continue to monitor H/H -OK to continue Protonix gtt -Obtain a CTA for further characterization of findings noted in distal descending colon; Further recommendations regarding monitoring/endoscopic evaluation/or IR intervention to be made pending results of this testing. Patient and are understanding and agreeable to the plan of care. Supervising Physician Co-Signing Physician Notes Agree with BRIANNE Farris as above Interviewed and examined patient and agree with above Abd: Soft, NT, ND, +BS Reviewed prior CT and CTA of the abd with Dr. Gaines of Radiology. It appears that he was having active bleeding on the CT earlier today, however, there was no evidence of active bleeding on the CTA this afternoon. Patient is no prepped, and therefore no plans for colonoscopy today. Bleeding has stopped as per CTA Would recommend supportive care, and if bleeding recurs, consider colonoscopy urgently. Will Discuss case with Dr. Louise who is covering this weekend History of Present Illness Reason for Consultation: GI bleed Attending Physician: Naa Yepez MD History of Present Illness Patient is a 72 yo male with PMH of paroxysmal atrial fibrillation s/p Watchman and history of BPH who presents to the ED with lower GI bleeding. The patient notes that last night he developed an unusual sensation in his abdomen with the urge to move his bowels. He notes grossly bloody stool (bright red). This continued since he presented to the ED. He notes that he sought evaluation quickly as he recently had a similar issue. In November 2022, he developed bloody stools and was transferred from [facility] to [facility] for further evaluation of lower GI bleeding. At the time, he was on Aspirin & Eliquis. He reports to me that while in [facility] in November- December 2022, he underwent an EGD, colonoscopy, and what I assume he is describing as a push enteroscopy. He notes that they did not find an etiology for the bleeding, but suspected diverticular bleeding. In the ED, he was noted to have an initial H/H of 13.7/39.6. He notes several bloody bowel movements while in the ED. A CT abdomen/pelvis with IV contrast on admission raised the question of a a focus in the distal descending colon that may represent bowel contents vs active arterial extravasation vs angiodysplasia. The patient denies true abdominal pain. He notes some discomfort alerting him when he has to move his bowels. BUN/Cr 28/0.86. He is on a Protonix drip at present. Allergies Allergy/AdvReac Type Severity Reaction Status Date / Time Crmabqj-[id number]-[id number] Reductase AdvReac Unknown Verified 04/02/23 14:30 Inhibitor Home Medications Medication Instructions Recorded Confirmed Type aspirin 81 mg tablet,delayed 81 mg PO DAILY 04/02/23 06/08/23 History release (Adult Aspirin Regimen) blood-glucose sensor (Dexcom G6 04/02/23 04/02/23 History Sensor device) clopidogrel 75 mg tablet (Plavix) 75 mg PO DAILY 04/02/23 06/08/23 History diltiazem HCl 180 mg 180 mg PO DAILY 04/02/23 06/08/23 History capsule,extended release 24 hr ezetimibe 10 mg tablet (Zetia) 10 mg PO DAILY 04/02/23 06/08/23 History fluorouracil 5 % topical cream 1 applic topical BID 04/02/23 06/08/23 History (Efudex) insulin glargine 100 unit/mL 20 unit subcut DAILY 04/02/23 06/08/23 History subcutaneous solution levothyroxine 25 mcg capsule 25 mcg PO DAILY 04/02/23 06/08/23 History losartan 25 mg tablet 25 mg PO DAILY 04/02/23 06/08/23 History montelukast 10 mg tablet 10 mg PO DAILY 04/02/23 06/08/23 History sotalol 80 mg tablet 80 mg PO BID 04/02/23 06/08/23 History tamsulosin 0.4 mg capsule 0.4 mg PO DAILY 04/02/23 06/08/23 History lorazepam 1 mg tablet 1 mg PO DAILY PRN Pre vasectomy 04/23/23 06/08/23 Rx procedure #1 tab finasteride 5 mg tablet 5 mg PO DAILY #90 tabs 06/05/23 06/08/23 Rx albuterol sulfate 90 mcg/actuation See Rx Instructions .Route .COMPLEX 06/08/23 06/08/23 History aerosol inhaler fluticasone 250 mcg-salmeterol 50 1 inh inhalation AMHS 06/08/23 06/08/23 History mcg/dose blistr powdr for inhalation Patient History Social History Smoking Status: Never smoker Hx Alcohol Use: No Hx Substance Use: No Preferred Language: Burundian Communication Ability: Effective 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 Beliefs That Will Affect Care: None Current Living Situation: Spouse Feels Safe at Home: Yes Safety Concerns: Feels Safe At This Time Review of Systems Constitutional: no fever and no chills Respiratory: no cough and no dyspnea Cardiovascular: no chest pain Gastrointestinal: + blood in stools; no abdominal pain Psychiatric: no problem reported Physical Exam Constitutional: well developed Respiratory: normal respiratory effort Cardiovascular: Rate/Rhythm: regular rate Gastrointestinal (Abdomen): normal bowel sounds, soft, nontender, no hepatosplenomegaly Psychiatric: Orientation: alert and oriented x 3 Results & Data Vital Signs (Past 12 Hours) Vital Signs Temp Pulse Pulse Resp BP BP Pulse Ox 06/08/23 11:50 69 16 146/78 H 99 06/08/23 10:51 71 19 141/75 H 96 06/08/23 10:40 89 22 06/08/23 10:20 68 18 06/08/23 10:18 71 18 06/08/23 10:05 69 17 06/08/23 09:42 74 20 06/08/23 09:30 69 17 169/91 H 06/08/23 09:20 71 13 06/08/23 09:10 68 14 06/08/23 09:06 74 20 111/89 98 06/08/23 09:02 72 17 141/81 H 06/08/23 09:00 68 16 109/91 06/08/23 08:50 68 14 06/08/23 08:47 78 12 06/08/23 08:35 76 06/08/23 08:30 73 19 06/08/23 08:22 73 12 06/08/23 08:00 66 14 99 06/08/23 07:55 70 18 99 06/08/23 07:07 98 06/08/23 06:58 36.8 C 68 14 157/84 H 99 O2 Del Method 06/08/23 11:50 Room Air 06/08/23 10:51 06/08/23 10:40 06/08/23 10:20 06/08/23 10:18 06/08/23 10:05 06/08/23 09:42 06/08/23 09:30 06/08/23 09:20 06/08/23 09:10 06/08/23 09:06 Room Air 06/08/23 09:02 06/08/23 09:00 06/08/23 08:50 06/08/23 08:47 06/08/23 08:35 06/08/23 08:30 06/08/23 08:22 06/08/23 08:00 06/08/23 07:55 06/08/23 07:07 Room Air 06/08/23 06:58 Room Air PG Care Time/CCT Total # of Minutes Spent Total Time Spent with Patient: Total time spent is greater than 50% in coordination of care (as documented) at patient's floor/unit and/or counseling patient: Coding Level of Care Code 21637 INT INP/OBS CARE 3/75MIN Diagnoses Lower GI bleeding K92.2
[2023-06-08] MEDS: SOTALOL HCL 80 MG TAB PO SCH (13:18)
[2023-06-08] MEDS: FINASTERIDE 5 MG TAB PO SCH (13:18)
[2023-06-08] MEDS: dilTIAZem HCL 180 MG CAPCR PO SCH (13:18)
[2023-06-08] MEDS: EZETIMIBE 10 MG TAB PO SCH (13:19)
[2023-06-08] MEDS: LEVOTHYROXINE SODIUM 25 MCG TABLET PO SCH (13:19)
--- NOTE | 2023-06-08 14:15 | CT Scan Report ---
CT ANGIOGRAPHY OF THE ABDOMEN AND PELVIS CLINICAL HISTORY: GI bleeding COMPARISON STUDY: CT of the abdomen and pelvis performed earlier today. TECHNIQUE: Helical axial images of the abdomen and pelvis were obtained during her ureteral phase fol lowing intravenous injection of 119 cc of Optiray 320 IV. Sagittal and coronal reconstructions were v iewed as well as maximal intensity projections on an independent 3-D workstation. Automated exposure control was utilized for the study. A dose lowering technique was utilized adhering to the principle s of ALARA. FINDINGS: Lung bases are unremarkable. No pneumatosis, free air or portal venous gas is present. Ther e is extensive aortoiliac atherosclerotic plaque. A 3.2 cm infrarenal abdominal aortic aneurysm is pr esent. 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 Right common iliac artery measures 2.4 cm. The left measures 2.1 cm. The major vessels are patent. There is also extens elva plaque within the branch vessels. No intraluminal foci of contrast are identified within the bony l on this exam. The intraluminal hyperdensity within the descending colon on CT performed earlier tod ay is no longer identified. This extensive colonic diverticulosis without evidence for acute divertic ulitis. There is no evidence for a bowel obstruction. No bowel wall thickening is identified. The sherie endix is normal. There is no lymphadenopathy. There are no fluid collections. Small gallstone within the gallbladder is present. Arterial phase images of liver, spleen, adrenal glands and pancreas are u nremarkable. Contrast within the bladder from recent contrast-enhanced CT is present. The prostate is enlarged, measuring 5.5 cm in transverse diameter. IMPRESSION: 1. No intraluminal contrast within the bowel to suggest active GI bleed on this exam. The hyperdense focus within the descending colon on CT performed earlier today is no longer identified. Therefore, a ctive GI bleed on that exam is favored over intraluminal contents. Lack of visualization on current s tudy could be due to the phase of enhancement or cessation of GI bleed. 2. Extensive colonic diverticulosis. No evidence for acute diverticulitis. 3. No bowel obstruction. No bowel wall thickening. 4. 3.2 cm infrarenal abdominal aortic aneurysms. ACT 112: Negative or not required by law. Electronically signed by: Louis Gaines M.D. 06/08/2023 2:13 PM
[2023-06-08 14:54] LABS: Hematocrit (blood only) 35.2 % (42.0-52.0); Hemoglobin 11.9 g/dl (14.0-18.0)
[2023-06-08] MEDS ORDERED: CARBOHYDRATES FOR HYPOGLYCEMIA PO PRN (16:55)
[2023-06-08] MEDS ORDERED: GLUCAGON FOR INJ 1 MG VIAL SQ PRN (16:55)
[2023-06-08] MEDS ORDERED: DEXTROSE 50% 50 ML SYRINGE IV PRN (16:55)
[2023-06-08] MEDS ORDERED: GLUCOSE 10 TAB/TUBE PO PRN (16:55)
[2023-06-08] MEDS ORDERED: GLUCOSE 40% GEL 15 GM TUBE PO PRN (16:55)
[2023-06-08] MEDS: INSULIN ASPART PER UNIT CHARGE SC SCH (20:55)
[2023-06-08] MEDS: TAMSULOSIN HCL 0.4 MG CAP PO SCH (20:56)
[2023-06-08] MEDS: ACETAMINOPHEN 325 MG TAB PO PRN (20:57)
[2023-06-08] MEDS: SODIUM CHLORIDE 0.9% 1,000 ML IV SCH ×2 (23:54→23:55)
[2023-06-09 03:07] LABS: Eosinophils # (auto) 0.37 K/uL (0.00-0.50); Eosinophils % (auto) 3.8 %; Hematocrit (blood only) 30.5 % (42.0-52.0); Hemoglobin 10.6 g/dl (14.0-18.0); Immature Granulocytes # (auto) 0.04 K/uL (0.01-0.20); Immature Granulocytes % (auto) 0.4 %; Lymphocytes # (auto) 1.27 K/uL (1.20-3.40); Lymphocytes % (auto) 13.2 %; Mean Corpuscular Hemoglobin 30.7 pg (25.0-34.0); Mean Corpuscular Hgb Conc 34.8 g/dL (32.0-36.0); Mean Corpuscular Volume 88.4 fL (80.0-100.0); Mean Platelet Volume 8.9 fL (9.4-12.4); Monocytes # (auto) 0.69 K/uL (0.11-0.59); Monocytes % (auto) 7.2 %; Neutrophils # (auto) 7.18 K/uL (1.40-6.50); Neutrophils % (auto) 74.4 %; Platelet Count 175 K/uL (130-400); RDW Coefficient of Variation 13.9 % (11.5-14.5); RDW Standard Deviation 44.6 fL (36.4-46.3); Red Blood Count 3.45 M/uL (4.70-6.10); White Blood Count 9.65 K/ul (4.8-10.8)
[2023-06-09 03:27] LABS: BUN Creatinine Ratio 24.7 (10-20); Creatinine Clr Calc Pharmacy 76.5 ml/min; Est GFR (African American) 105.8 ml/min; Est GFR (Non-African American) 91.3 ml/min; Magnesium 1.6 mg/dl (1.7-2.4); Phosphorus 2.8 mg/dl (2.5-4.9); Potassium 3.9 mmol/L (3.5-5.1)
[2023-06-09 07:14] LABS: Estimated Average Glucose 154 mg/dl
[2023-06-09] MEDS: MONTELUKAST SODIUM 10 MG TABLET PO SCH (08:26)
[2023-06-09] MEDS: FLUTICASONE/VILANTEROL 200/25MCG 14 PUFFS/INHALER INH SCH (08:26)
--- NOTE | 2023-06-09 09:43 | Gastroenterology Progress Note ---
Date of Service June 09, 2023 Assessment & Plan (1) Lower GI bleeding: Plan: It seems to me that he has had diverticular bleeding that has stopped. Lack of bm's overnight suggests stopping active bleeding with small amount of blood being cleared out this morning. He had workup at the end of November so don't feel repeat colon needed unless active bleeding continues and it seems that he has stopped as of this point. Will keep following with you and step in if appropriate if bleeding recurs. Admission and Anticipated Discharge Date Admission Date: June 08, 2023 Subjective Hgb down to 10. He feels pretty well this morning. Tells me he continued with bloody bowel movements until last evening and then they stopped. He went all night without a bowel movement then had a small one he says with small amount of blood streaks. Nurse reports brown stool with "tinges of blood". He did have some mild hypotension over the night as well with BP down to 109/63 but without tachycardia Physical Exam Physical Exam: He looks well Constitutional: WD/WN, vitals as above Results & Data Vital Signs (Past 12 Hours) Vital Signs Temp Pulse Pulse Resp BP Pulse Ox O2 Del Method 06/09/23 07:45 36.3 C L 73 20 115/65 94 Room Air 06/09/23 07:41 73 06/09/23 07:26 Room Air 06/09/23 04:02 36.3 C L 63 20 121/63 98 Room Air 06/09/23 00:13 36.6 C 63 18 109/63 98 Room Air 06/08/23 23:38 61 06/08/23 23:08 57 L 18 92/59 L 97 Room Air
--- NOTE | 2023-06-09 10:36 | Hospitalist Progress Note ---
Date of Service June 09, 2023 Assessment & Plan (1) Lower GI bleeding: (2) Paroxysmal atrial fibrillation: (3) Presence of Watchman left atrial appendage closure device: Plan Mr. Winn is a 72 year old year old male with paroxysmal atrial fibrillation and flutter status post ablations on low dose sotalol, and diltiazem, now s/p watchman's device 02/2023, prior GIB requiring transfusions, DMTII, COPD, HTN, BPH and other medical conditions listed below admitted due to melena. Patient now with acute blood loss anemia due to what is suspected to be a diverticular bleed. Hgb from 13 to 10. GI continues with conservative management at this time. Monitor CBC for stabilization #Melena, c/f lower GIB #Prior GIB requiring transfusion #Acute on Chronic normocytic anemia Hgb baseline 13~, stable at this time, however, likely downtrend GI bleeding 11/2022,s/p 3 units of packed red blood cells discontinuation of anticoagulation (Eliquis), source of bleeding not identified. Recommended to be on ASA/plavix x 6 months, now s/p ~3 months watchman -Continue PPI drip -Repeat HH this afternoon consistent with blood loss -GI consult - It appears that he was having active bleeding on the CT earlier today, however, there was no evidence of active bleeding on the CTA this afternoon. -Would recommend supportive care, CLD at this time -Cards to discuss DAPT, routine recommendation 6months, however in this situation plavix single therapy or CTM? -Given melena aspirin clopidogrel currently on hold. When bleeding resolves, would consider moving forward with monotherapy with aspirin without clopidogrel. Patient is already 3 months removed from device, and aspirin monotherapy would be the typical plan 6 months post device. -Trend CBC, transfuse if symptomatic or hgb <7 -q12 hours #Paroxysmal atrial fibrillation /flutter s/p watchman 03/09/2023, watchman at [facility], recent JAY revealed stable device with no thrombus or leak Continue sotalol 40 mg twice a day along with Diltiazem 180 mg/day. Cr. stable, 0.8 on admission #Mild to moderate mitral regurgitation. Compensated #Hypertension: Controlled. Hold losartan iso GIB, resume as able #Dyslipidemia with statin intolerance. Continue ezetimibe. #Hypothyroidism -Synthroid #Chronic hyponatremia Stable, at baseline low 130s #BPH Continue finasteride and tamsulosin monitor for retention #COPD Resume home inhaler #DMTII SSI DVT SCDs ambulate Med tele Admission and Anticipated Discharge Date Admission Date: June 08, 2023 Subjective episode of hypotension last evening, improved with bolus of fluids Reports bloody stool while wiping, denies nausea vomiting Reports feeling much improved from day prior Physical Exam Constitutional: WD/WN, vitals as above Respiratory: normal respiratory effort, lungs clear to auscultation Cardiovascular: RRR, no murmur, no edema Gastrointestinal (Abdomen): normal bowel sounds, soft, nontender, no hepatosplenomegaly Results & Data Results & Data Vital Signs (Past 12 Hours) Vital Signs Temp Pulse Pulse Resp BP Pulse Ox O2 Del Method 06/09/23 07:45 36.3 C L 73 20 115/65 94 Room Air 06/09/23 07:41 73 06/09/23 07:26 Room Air 06/09/23 04:02 36.3 C L 63 20 121/63 98 Room Air 06/09/23 00:13 36.6 C 63 18 109/63 98 Room Air 06/08/23 23:38 61 06/08/23 23:08 57 L 18 92/59 L 97 Room Air Laboratory Results Short CBC 06/08/23 06/09/23 Range/Units 14:22 02:53 WBC 9.65 (4.8-10.8) K/ul Hgb 11.9 L 10.6 L (14.0-18.0) g/dl Hct 35.2 L 30.5 L (42.0-52.0) % Plt Count 175 (130-400) K/uL [facility] 06/09/23 02:53 Sodium 133 L Potassium 3.9 Chloride 105 Carbon Dioxide 22 BUN 19 Creatinine 0.77 Glucose 129 H Calcium 8.0 L Medications Administered Home Medications Medication Instructions Recorded Confirmed Last Taken aspirin 81 mg tablet,delayed 81 mg PO DAILY 04/02/23 06/08/23 Unknown release (Adult Aspirin Regimen) blood-glucose sensor (Dexcom G6 04/02/23 04/02/23 Unknown Sensor device) clopidogrel 75 mg tablet (Plavix) 75 mg PO DAILY 04/02/23 06/08/23 Unknown diltiazem HCl 180 mg 180 mg PO DAILY 04/02/23 06/08/23 Unknown capsule,extended release 24 hr ezetimibe 10 mg tablet (Zetia) 10 mg PO DAILY 04/02/23 06/08/23 Unknown insulin glargine 100 unit/mL 20 unit subcut DAILY 04/02/23 06/08/23 Unknown subcutaneous solution levothyroxine 25 mcg capsule 25 mcg PO DAILY 04/02/23 06/08/23 Unknown losartan 25 mg tablet 25 mg PO DAILY 04/02/23 06/08/23 Unknown montelukast 10 mg tablet 10 mg PO DAILY 04/02/23 06/08/23 Unknown sotalol 80 mg tablet 80 mg PO BID 04/02/23 06/08/23 Unknown tamsulosin 0.4 mg capsule 0.4 mg PO DAILY 04/02/23 06/08/23 Unknown lorazepam 1 mg tablet 1 mg PO DAILY PRN Pre vasectomy 04/23/23 06/08/23 Unknown procedure #1 tab finasteride 5 mg tablet 5 mg PO DAILY #90 tabs 06/05/23 06/08/23 Unknown albuterol sulfate 90 mcg/actuation See Rx Instructions .Route .COMPLEX 06/08/23 06/08/23 Unknown aerosol inhaler fluticasone 250 mcg-salmeterol 50 1 inh inhalation AMHS 06/08/23 06/08/23 Unknown mcg/dose blistr powdr for inhalation Active Medications Generic Name Dose Route Start Last Admin Trade Name Freq PRN Reason Stop Dose Admin Acetaminophen 650 mg 06/08/23 10:16 06/08/23 20:57 Acetaminophen 325 Mg Tab PO 07/08/23 10:15 650 mg Q4H PRN Administration Pain or Fever Diltiazem HCl 180 mg 06/08/23 11:00 06/09/23 08:26 Diltiazem Hcl 180 Mg Capcr PO 07/08/23 10:59 180 mg DAILY RENETTA Administration Ezetimibe 10 mg 06/08/23 10:30 06/09/23 08:26 Ezetimibe 10 Mg Tab PO 07/08/23 10:29 10 mg DAILY RENETTA Administration Finasteride 5 mg 06/08/23 10:30 06/09/23 08:26 Finasteride 5 Mg Tab PO 07/08/23 10:29 5 mg DAILY RENETTA Administration Fluticasone/Vilanterol 1 puffs 06/09/23 09:00 06/09/23 08:26 Fluticasone/Vilanterol 200/25mcg 14 Puffs/Inhaler INH 07/09/23 08:59 1 puffs DAILY RENETTA Administration Pantoprazole Sodium 40 mg/ 100 mls @ 20 mls/hr 06/08/23 08:30 06/09/23 05:58 Dextrose IV 07/08/23 08:29 8 mg/hr Q5H RENETTA 20 mls/hr Administration 8 MG/HR Sodium Chloride 1,000 mls @ 100 mls/hr 06/08/23 23:00 06/09/23 10:00 Nss IV 07/08/23 22:59 100 mls/hr .Q10H RENETTA Administration Insulin Aspart 0 units 06/08/23 21:00 06/09/23 09:01 Insulin Aspart Per Unit Charge SC 07/08/23 20:59 3 units ACHS RENETTA Administration Levothyroxine Sodium 25 mcg 06/08/23 10:30 06/09/23 05:59 Levothyroxine Sodium 25 Mcg Tablet PO 07/08/23 10:29 25 mcg DAILYBB RENETTA Administration Montelukast Sodium 10 mg 06/09/23 09:00 06/09/23 08:26 Montelukast Sodium 10 Mg Tablet PO 07/09/23 08:59 10 mg DAILY RENETTA Administration Sotalol HCl 40 mg 06/08/23 10:30 06/09/23 08:26 Sotalol Hcl 80 Mg Tab PO 07/08/23 10:29 40 mg BID RENETTA Administration Tamsulosin HCl 0.4 mg 06/08/23 21:00 06/08/23 20:56 Tamsulosin Hcl 0.4 Mg Cap PO 07/08/23 20:59 0.4 mg QPM RENETTA Administration
[2023-06-09 17:36] LABS: Hematocrit (blood only) 28.9 % (42.0-52.0); Mean Corpuscular Hemoglobin 30.8 pg (25.0-34.0); Mean Corpuscular Hgb Conc 34.6 g/dL (32.0-36.0); Mean Corpuscular Volume 88.9 fL (80.0-100.0); Mean Platelet Volume 9.4 fL (9.4-12.4); Platelet Count 188 K/uL (130-400); RDW Coefficient of Variation 13.8 % (11.5-14.5); RDW Standard Deviation 44.9 fL (36.4-46.3); Red Blood Count 3.25 M/uL (4.70-6.10); White Blood Count 8.33 K/ul (4.8-10.8)
[2023-06-09] MEDS: MAGNESIUM SULFATE / D5W 1 GM/100 ML BAG IV SCH (17:52)
[2023-06-10 04:15] LABS: Hematocrit (blood only) 28.7 % (42.0-52.0); Mean Corpuscular Hgb Conc 34.8 g/dL (32.0-36.0); Mean Corpuscular Volume 88.9 fL (80.0-100.0); Mean Platelet Volume 9.3 fL (9.4-12.4); Platelet Count 175 K/uL (130-400); RDW Coefficient of Variation 13.9 % (11.5-14.5); RDW Standard Deviation 45.1 fL (36.4-46.3); Red Blood Count 3.23 M/uL (4.70-6.10); White Blood Count 7.42 K/ul (4.8-10.8)
[2023-06-10 04:26] LABS: BUN Creatinine Ratio 12.5 (10-20); Calcium 7.5 mg/dl (8.6-10.3); Creatinine Clr Calc Pharmacy 92.1 ml/min; Est GFR (African American) 114.2 ml/min; Est GFR (Non-African American) 98.5 ml/min; Potassium 3.7 mmol/L (3.5-5.1)
[2023-06-10 04:45] LABS: Ferritin 59.1 ng/ml (8-388)
[2023-06-10 04:59] LABS: Folate (Folic Acid),Ser orPlas > 22.30 ng/ml (>5.38)
[2023-06-10 05:00] LABS: Vitamin B12 487 pg/ml (180-914)
[2023-06-10] MEDS: IRON SUCROSE 300 MG in SODIUM CHLORIDE 0.9% 250 ML IV ONE (07:34)
--- NOTE | 2023-06-10 09:38 | Gastroenterology Progress Note ---
Date of Service June 10, 2023 Assessment & Plan (1) Lower GI bleeding: Plan: His bleeding has stopped with no bowel movement for 24 hours or more. I think we can make the presumptive diagnosis of diverticular bleed since he had recent evaluation elsewhere. He tells me he is coming off plavix and going on low dose ASA. If he does well through the day it is fine with me if he goes home to follow up with PCP and his Gi doc if needed Admission and Anticipated Discharge Date Admission Date: June 08, 2023 Subjective Feeling good. Had scrambled eggs and toast this morning. Has not had a bowel movement since the one yesterday morning. H/H are stable Physical Exam Physical Exam: He looks well Constitutional: WD/WN, vitals as above Results & Data Vital Signs (Past 12 Hours) Vital Signs Temp Pulse Pulse Resp BP Pulse Ox O2 Del Method 06/10/23 07:36 36.8 C 64 20 119/69 96 Room Air 06/10/23 07:19 Room Air 06/10/23 03:47 36.5 C 55 L 16 125/67 96 Room Air 06/09/23 23:06 36.5 C 58 L 20 122/67 96 Room Air 06/09/23 22:00 58 L
--- NOTE | 2023-06-10 10:42 | Electrocardiogram Report ---
Test Reason : Blood Pressure : / mmHG Vent. Rate : 064 BPM Atrial Rate : 064 BPM P-R Int : 156 ms QRS Dur : 132 ms QT Int : 446 ms P-R-T Axes : -05 094 045 degrees QTc Int : 460 ms Normal sinus rhythm Right bundle branch block Cannot rule out Inferior infarct , age undetermined Abnormal ECG No previous ECGs available Confirmed by Mckay Meneses ([id number]) on 06/10/2023 10:42:16 AM Referred By: REFERRED SELF Confirmed By:Mckay Meneses
[2023-06-10] MEDS: PANTOprazole 40 MG TAB PO SCH (11:39)
--- NOTE | 2023-06-10 13:22 | Hospitalist Progress Note ---
Date of Service June 10, 2023 Assessment & Plan (1) Lower GI bleeding: (2) Paroxysmal atrial fibrillation: (3) Presence of Watchman left atrial appendage closure device: Plan Mr. Winn is a 72 year old year old male with paroxysmal atrial fibrillation and flutter status post ablations on low dose sotalol, and diltiazem, now s/p watchman's device 02/2023, prior GIB requiring transfusions, DMTII, COPD, HTN, BPH and other medical conditions listed below admitted due to melena. Patient with acute blood loss anemia due to what is suspected to be a diverticular bleed. Hgb from 13 to 10. GI continues with conservative management at this time--hemoglobin remains stable and regular diet resumed. Given 24 hours of stability, will resume low dose aspirin and transition to daily PPI. Possible dispo tomorrow. #Melena, c/f lower GIB #Prior GIB requiring transfusion #Acute on Chronic normocytic anemia Hgb baseline 13~, stable at this time, however, likely downtrend GI bleeding 11/2022,s/p 3 units of packed red blood cells discontinuation of anticoagulation (Eliquis), source of bleeding not identified. Recommended to be on ASA/plavix x 6 months, now s/p ~3 months watchman -Discontinue PPI drip, start daily ppi -Iron Deficiency noted, s/p IV venofer this am, PO tomorrow -GI consult - It appears that he was having active bleeding on the CT earlier today, however, there was no evidence of active bleeding on the CTA this afternoon. -Would recommend supportive care, CLD at this time -Cards to discuss DAPT, routine recommendation 6months, however in this situation plavix single therapy or CTM? -Given melena aspirin clopidogrel currently on hold. When bleeding resolves, would consider moving forward with monotherapy with aspirin without clopidogrel. Patient is already 3 months removed from device, and aspirin monotherapy would be the typical plan 6 months post device. -ASA qpm this evening -Discontinue plavix upon discharge -Trend CBC, transfuse if symptomatic or hgb <7 -q12 hours #Paroxysmal atrial fibrillation /flutter s/p watchman 03/09/2023, watchman at [facility], recent JAY revealed stable device with no thrombus or leak Continue sotalol 40 mg twice a day along with Diltiazem 180 mg/day. Cr. stable, 0.8 on admission #Mild to moderate mitral regurgitation. Compensated #Hypertension: Controlled. Hold losartan iso GIB, resume as able #Dyslipidemia with statin intolerance. Continue ezetimibe. #Hypothyroidism -Synthroid #Chronic hyponatremia Stable, at baseline low 130s #BPH Continue finasteride and tamsulosin monitor for retention #COPD Resume home inhaler #DMTII SSI DVT SCDs ambulate Med tele Admission and Anticipated Discharge Date Admission Date: June 08, 2023 Subjective NAEO Tolerating regular diet no further concerning bowel movements or hypotensive episodes Patient would like to take low dose asa this evening and see blood level before going home Physical Exam Constitutional: WD/WN, vitals as above Respiratory: normal respiratory effort, lungs clear to auscultation Cardiovascular: RRR, no murmur, no edema Gastrointestinal (Abdomen): normal bowel sounds, soft, nontender, no hepatosplenomegaly Results & Data Results & Data Vital Signs (Past 12 Hours) Vital Signs Temp Pulse Resp BP Pulse Ox O2 Del Method 06/10/23 11:35 36.8 C 66 18 127/74 96 Room Air 06/10/23 07:36 36.8 C 64 20 119/69 96 Room Air 06/10/23 07:19 Room Air 06/10/23 03:47 36.5 C 55 L 16 125/67 96 Room Air Laboratory Results Short CBC 06/09/23 06/10/23 Range/Units 16:55 03:42 WBC 8.33 7.42 (4.8-10.8) K/ul Hgb 10.0 L 10.0 L (14.0-18.0) g/dl Hct 28.9 L 28.7 L (42.0-52.0) % Plt Count 188 175 (130-400) K/uL BMP 06/10/23 03:42 Sodium 135 L Potassium 3.7 Chloride 108 H Carbon Dioxide 22 BUN 8 Creatinine 0.64 Glucose 161 H Calcium 7.5 L Medications Administered Home Medications Medication Instructions Recorded Confirmed Last Taken aspirin 81 mg tablet,delayed 81 mg PO DAILY 04/02/23 06/08/23 Unknown release (Adult Aspirin Regimen) blood-glucose sensor (Dex[employer]Circle G6 04/02/23 04/02/23 Unknown Sensor device) clopidogrel 75 mg tablet (Plavix) 75 mg PO DAILY 04/02/23 06/08/23 Unknown diltiazem HCl 180 mg 180 mg PO DAILY 04/02/23 06/08/23 Unknown capsule,extended release 24 hr ezetimibe 10 mg tablet (Zetia) 10 mg PO DAILY 04/02/23 06/08/23 Unknown insulin glargine 100 unit/mL 20 unit subcut DAILY 04/02/23 06/08/23 Unknown subcutaneous solution levothyroxine 25 mcg capsule 25 mcg PO DAILY 04/02/23 06/08/23 Unknown losartan 25 mg tablet 25 mg PO DAILY 04/02/23 06/08/23 Unknown montelukast 10 mg tablet 10 mg PO DAILY 04/02/23 06/08/23 Unknown sotalol 80 mg tablet 80 mg PO BID 04/02/23 06/08/23 Unknown tamsulosin 0.4 mg capsule 0.4 mg PO DAILY 04/02/23 06/08/23 Unknown lorazepam 1 mg tablet 1 mg PO DAILY PRN Pre vasectomy 04/23/23 06/08/23 Unknown procedure #1 tab finasteride 5 mg tablet 5 mg PO DAILY #90 tabs 06/05/23 06/08/23 Unknown albuterol sulfate 90 mcg/actuation See Rx Instructions .Route .COMPLEX 06/08/23 06/08/23 Unknown aerosol inhaler fluticasone 250 mcg-salmeterol 50 1 inh inhalation AMHS 06/08/23 06/08/23 Unknown mcg/dose blistr powdr for inhalation Active Medications Generic Name Dose Route Start Last Admin Trade Name Freq PRN Reason Stop Dose Admin Acetaminophen 650 mg 06/08/23 10:16 06/08/23 20:57 Acetaminophen 325 Mg Tab PO 07/08/23 10:15 650 mg Q4H PRN Administration Pain or Fever Diltiazem HCl 180 mg 06/08/23 11:00 06/10/23 07:38 Diltiazem Hcl 180 Mg Capcr PO 07/08/23 10:59 180 mg DAILY RENETTA Administration Ezetimibe 10 mg 06/08/23 10:30 06/10/23 07:37 Ezetimibe 10 Mg Tab PO 07/08/23 10:29 10 mg DAILY RENETTA Administration Finasteride 5 mg 06/08/23 10:30 06/10/23 07:38 Finasteride 5 Mg Tab PO 07/08/23 10:29 5 mg DAILY RENETTA Administration Fluticasone/Vilanterol 1 puffs 06/09/23 09:00 06/10/23 07:37 Fluticasone/Vilanterol 200/25mcg 14 Puffs/Inhaler INH 07/09/23 08:59 1 puffs DAILY RENETTA Administration Insulin Aspart 0 units 06/08/23 21:00 06/10/23 13:07 Insulin Aspart Per Unit Charge SC 07/08/23 20:59 3 units ACHS RENETTA Administration Levothyroxine Sodium 25 mcg 06/08/23 10:30 06/10/23 06:29 Levothyroxine Sodium 25 Mcg Tablet PO 07/08/23 10:29 25 mcg DAILYBB RENETTA Administration Montelukast Sodium 10 mg 06/09/23 09:00 06/10/23 07:37 Montelukast Sodium 10 Mg Tablet PO 07/09/23 08:59 10 mg DAILY RENETTA Administration Pantoprazole Sodium 40 mg 06/10/23 11:15 06/10/23 11:39 Pantoprazole 40 Mg Tab PO 07/10/23 11:14 40 mg QAM RENETTA Administration Sotalol HCl 40 mg 06/08/23 10:30 06/10/23 07:38 Sotalol Hcl 80 Mg Tab PO 07/08/23 10:29 40 mg BID RENETTA Administration Tamsulosin HCl 0.4 mg 06/08/23 21:00 06/09/23 20:32 Tamsulosin Hcl 0.4 Mg Cap PO 07/08/23 20:59 0.4 mg QPM RENETTA Administration
[2023-06-10 16:08] LABS: Hematocrit (blood only) 30.4 % (42.0-52.0); Hemoglobin 10.5 g/dl (14.0-18.0); Mean Corpuscular Hgb Conc 34.5 g/dL (32.0-36.0); Mean Corpuscular Volume 89.7 fL (80.0-100.0); Mean Platelet Volume 9.1 fL (9.4-12.4); Platelet Count 188 K/uL (130-400); RDW Coefficient of Variation 13.9 % (11.5-14.5); RDW Standard Deviation 45.7 fL (36.4-46.3); Red Blood Count 3.39 M/uL (4.70-6.10); White Blood Count 9.48 K/ul (4.8-10.8)
[2023-06-10] MEDS: ASPIRIN 81 MG ECTAB PO SCH (20:45)
[2023-06-11 06:22] LABS: Hematocrit (blood only) 31.3 % (42.0-52.0); Hemoglobin 10.9 g/dl (14.0-18.0); Mean Corpuscular Hemoglobin 31.1 pg (25.0-34.0); Mean Corpuscular Hgb Conc 34.8 g/dL (32.0-36.0); Mean Corpuscular Volume 89.2 fL (80.0-100.0); Mean Platelet Volume 9.7 fL (9.4-12.4); Platelet Count 186 K/uL (130-400); RDW Coefficient of Variation 13.7 % (11.5-14.5); RDW Standard Deviation 44.3 fL (36.4-46.3); Red Blood Count 3.51 M/uL (4.70-6.10); White Blood Count 7.68 K/ul (4.8-10.8)
[2023-06-11] MEDS: FERROUS SULFATE 325 MG TAB PO SCH (09:02)
--- NOTE | 2023-06-11 12:58 | Hospitalist Progress Note ---
Date of Service June 11, 2023 Assessment & Plan (1) Lower GI bleeding: (2) Paroxysmal atrial fibrillation: (3) Presence of Watchman left atrial appendage closure device: Plan Mr. Winn is a 72 year old year old male with paroxysmal atrial fibrillation and flutter status post ablations on low dose sotalol, and diltiazem, now s/p watchman's device 02/2023, prior GIB requiring transfusions, DMTII, COPD, HTN, BPH and other medical conditions listed below admitted due to melena. Patient with acute blood loss anemia due to what is suspected to be a diverticular bleed. Melena Lower GIB Prior GIB requiring transfusion Acute on Chronic normocytic anemia Likely secondary to diverticulosis --CT ABD:No intraluminal contrast within the bowel to suggest active GI bleed on this exam. The hyperdense focus within the descending colon on CT performed earlier today is no longer identified. Therefore, active GI bleed on that exam is favored over intraluminal contents. Lack of visualization on current study could be due to the phase of enhancement or cessation of GI bleed. Extensive colonic diverticulosis. No evidence for acute diverticulitis. No bowel obstruction. No bowel wall thickening. 3.2 cm infrarenal abdominal aortic aneurysms. -- Previously Eliquis was discontinued --Was recommended to be on ASA/plavix x 6 months, now s/p ~3 months watchman PPI drip discontinued Started on p.o. Protonix daily -Iron Deficiency noted, s/p IV venofer, started on iron supplement --Appreciate GI input --Advised to follow-up with GI/surgery as outpatient if has multiple recurrent diverticular bleeds --Prior provider discussed with cardiology regarding:DAPT, routine recommendation 6months, however in this situation plavix single therapy or CTM? Gi Given melena, aspirin clopidogrel were held. When bleeding resolves, would consider moving forward with monotherapy with aspirin without clopidogrel. Patient is already 3 months removed from device, and aspirin monotherapy would be the typical plan 6 months post device. --Hemoglobin stable, no recurrence of bleeding after resuming aspirin Tolerating regular diet, no recurrence of bleeding Plan to be discharged home today Paroxysmal atrial fibrillation /flutter s/p watchman 03/09/2023, watchman at [facility], recent JAY revealed stable device with no thrombus or leak Continue sotalol 40 mg twice a day along with Diltiazem 180 mg/day. 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 Compensated Hypertension Resume home medications on discharge Monitor BP Dyslipidemia H/O statin intolerance. Continue ezetimibe Hypothyroidism Continue levothyroxine Chronic hyponatremia Stable Sodium 135 today BPH Continue finasteride and tamsulosin monitor for retention COPD Continue home inhaler DM II Continue insulin while hospitalized Monitor BGs DVT SCDs Ambulate Disposition Home Admission and Anticipated Discharge Date Admission Date: June 08, 2023 Subjective Patient is seen and examined at bedside No recurrence of bloody bowel movements Tolerating regular diet Denies any nausea, vomiting, chest pain, dyspnea No other complaints Plan to discharge home today Review of Systems Review of Systems: All systems reviewed & are unremarkable except as noted in Subjective Physical Exam Physical Exam: Physical Exam: Vitals signs as noted above General Appearance:Moderately built and nourished, no apparent distress Head: normocephalic, Atraumatic Eyes: normal inspection, EOMI Neck: supple, Trachea midline Respiratory/Chest: Normal breath sounds, CTA, No accessory muscle use Cardiovascular: S1, S2, No murmur Abdomen/GI:Soft, Non tender, Bowel sounds present Extremities/Musculoskeletal:normal inspection, no edema Neurologic/Psych:AAOX3, grossly no focal neurological deficits Skin: normal color, warm Results & Data Results & Data Vital Signs (Past 12 Hours) Vital Signs Temp Pulse Pulse Resp BP Pulse Ox O2 Del Method 06/11/23 11:23 36.3 C L 64 16 134/76 98 Room Air 06/11/23 08:09 36.4 C L 65 16 145/71 H 97 Room Air 06/11/23 07:38 Room Air 06/11/23 07:08 65 06/11/23 02:46 36.9 C 76 16 122/74 93 Room Air 06/11/23 01:29 67 Laboratory Results Short CBC 06/10/23 06/11/23 Range/Units 15:48 05:47 WBC 9.48 7.68 (4.8-10.8) K/ul Hgb 10.5 L 10.9 L (14.0-18.0) g/dl Hct 30.4 L 31.3 L (42.0-52.0) % Plt Count 188 186 (130-400) K/uL
--- NOTE | 2023-06-11 13:05 | Discharge Summary ---
Date of Service June 11, 2023 Admission HPI Per Admitting Provider Mr. Oliver Winn is a 72 year old gentleman with past medical history remarkable for paroxysmal atrial fibrillation and flutter status post ablations on low dose sotalol, and diltiazem, now s/p watchman's device 02/2023, prior GIB requiring transfusions, DMTII, COPD, HTN, BPH and other comorbidties who presented to [facility] due to bloody bowel movements. Patient states he noted red, dark stools late last evening that were much looser in consistency. He denies any recent GI illness, GERD/reflux concerns, or other acute issues. He states he has been in a good state of health and tolerated recent watchman placement, which was pursued due to GI bleeding that never revealed a clear cause. Per OP chart review: "Patient notes hospitalization at [facility], GI bleeding event in November 2022. Required transfusion of 3 U pRBC's. Eliquis anticoagulation discontinued. Source of bleeding not determined as per patient. Patient status post March 09, 2023 left atrial appendage closure with a 24 mm WATCHMAN closure device by Dr. Alban Christina at [facility]." Patient is no longer on eliquis, now on ASA/Plavix. Patient denies chest pain, palpitations, or other acute concerns. Patient reports vague intermittent low abdominal discomfort, but otherwise no post/pre prandial epigastric pains, no NSAID use, no other GI concerns out side of bowel movements In the ED, vitals were notable for BP of 140s-150s, HR of *60s-80s, and O2 sat of mid 90s on room air Imaging revealed a focus in the distal descending colon that may represent bowel contents vs active arterial extravasation vs angiodysplasia. ED interventions: IVF Labs with stable hgb of 13, baseline Consultants: GI, Cards Patient to be admitted to [facility] for further evaluation and management of GIB Admission Exam Per Admitting Provider GENERAL APPEARANCE: AxOx4, generally well-appearing male, no acute distress. HEENT: NC, AT. MMM. EOMI, clear conjunctiva, oropharynx clear. NECK: Supple without lymphadenopathy. No stiffness or restricted ROM. HEART: Normal rate and regular rhythm, normal S1/S1, no m/r/g LUNGS: CTAB, moving air well. No crackles or wheezes are heard. ABDOMEN: Soft, nontender, nondistended with good bowel sounds heard, slight ventral protuberance from hernia EXTREMITIES: Without cyanosis, clubbing or edema. NEUROLOGICAL: Grossly nonfocal. Alert and oriented, moving all 4 extremities. CN not formally tested but appear grossly intact. Observed to ambulate with normal gait. Skin: Warm and dry without any rash. Principal Diagnosis Lower gastrointestinal bleeding Acute on chronic anemia Iron deficiency anemia Diverticulosis Discharge Data Allergies Allergy/AdvReac Type Severity Reaction Status Date / Time [id number]-QtH Reductase AdvReac Unknown Verified 04/02/23 14:30 Inhibitor Consultations 06/08/23 08:33 Consult Cardiology Routine Consult Gastroenterology Routine 06/08/23 08:35 ED Decision to Admit Stat Procedures Performed Laboratory Results WBC 7.68 K/ul (4.8-10.8) 06/11/23 05:47 RBC 3.51 M/uL (4.70-6.10) L 06/11/23 05:47 Hgb 10.9 g/dl (14.0-18.0) L 06/11/23 05:47 Hct 31.3 % (42.0-52.0) L 06/11/23 05:47 MCV 89.2 fL (80.0-100.0) 06/11/23 05:47 MCH 31.1 pg (25.0-34.0) 06/11/23 05:47 MCHC 34.8 g/dL (32.0-36.0) 06/11/23 05:47 RDW Std Deviation 44.3 fL (36.4-46.3) 06/11/23 05:47 RDW Coeff of Lance 13.7 % (11.5-14.5) 06/11/23 05:47 Plt Count 186 K/uL (130-400) 06/11/23 05:47 MPV 9.7 fL (9.4-12.4) 06/11/23 05:47 Immature Gran % (Auto) 0.4 % 06/09/23 02:53 Neut % (Auto) 74.4 % 06/09/23 02:53 Lymph % (Auto) 13.2 % 06/09/23 02:53 [place] % (Auto) 7.2 % 06/09/23 02:53 Eos % (Auto) 3.8 % 06/09/23 02:53 Baso % (Auto) 1.0 % 06/09/23 02:53 Neut # (Auto) 7.18 K/uL (1.40-6.50) H 06/09/23 02:53 Lymph # (Auto) 1.27 K/uL (1.20-3.40) 06/09/23 02:53 [place] # (Auto) 0.69 K/uL (0.11-0.59) H 06/09/23 02:53 Eos # (Auto) 0.37 K/uL (0.00-0.50) 06/09/23 02:53 Baso # (Auto) 0.10 K/uL (0.00-0.20) 06/09/23 02:53 Immature Gran # (Auto) 0.04 K/uL (0.01-0.20) 06/09/23 02:53 PT 10.9 Seconds (9.0-12.0) 06/08/23 07:06 INR 1.0 (0.9-1.1) 06/08/23 07:06 APTT 28 Seconds (21-31) 06/08/23 07:06 PTT Ratio 1.0 06/08/23 07:06 Sodium 135 mmol/L (136-145) L 06/10/23 03:42 Potassium 3.7 mmol/L (3.5-5.1) 06/10/23 03:42 Chloride 108 mmol/L (98-107) H 06/10/23 03:42 Carbon Dioxide 22 mmol/L (21-32) 06/10/23 03:42 Anion Gap 5 (3-11) 06/10/23 03:42 BUN 8 mg/dl (6-23) 06/10/23 03:42 Creatinine 0.64 mg/dl (0.6-1.4) 06/10/23 03:42 Est Cr Clr Drug Dosing 92.1 ml/min 06/10/23 03:42 Est GFR ( Amer) 114.2 ml/min 06/10/23 03:42 Est GFR (Non-Af Amer) 98.5 ml/min 06/10/23 03:42 BUN/Creatinine Ratio 12.5 (10-20) 06/10/23 03:42 Glucose 161 mg/dl (70-99(Fasting)) H 06/10/23 03:42 POC Glucose 168 mg/dl (70-99) H 06/11/23 12:16 Estimat Average Glucose 154 mg/dl 06/09/23 02:53 Hemoglobin A1c 7.0 % (4.5-5.6) H 06/09/23 02:53 Calcium 7.5 mg/dl (8.6-10.3) L 06/10/23 03:42 Phosphorus 2.8 mg/dl (2.5-4.9) 06/09/23 02:53 Magnesium 1.6 mg/dl (1.7-2.4) L 06/09/23 02:53 Iron 76 mcg/dl (35-175) 06/10/23 03:42 TIBC 249 mcg/dl (250-450) L 06/10/23 03:42 Unsaturated IBC 173 mcg/dl (155-355) 06/10/23 03:42 Transferrin % Sat 31 % (20-50) 06/10/23 03:42 Ferritin 59.1 ng/ml (8-388) 06/10/23 03:42 Total Bilirubin 0.5 mg/dl (0.2-1.0) 06/08/23 07:06 AST 13 U/L (13-39) 06/08/23 07:06 ALT 13 U/L (7-52) 06/08/23 07:06 Alkaline Phosphatase 52 U/L (34-104) 06/08/23 07:06 Total Protein 7.2 gm/dl (6.0-8.3) 06/08/23 07:06 Albumin 4.4 gm/dl (3.4-5.0) 06/08/23 07:06 Globulin 2.8 gm/dl (2.5-4.0) 06/08/23 07:06 Albumin/Globulin Ratio 1.6 (0.9-2) 06/08/23 07:06 Vitamin B12 487 pg/ml (180-914) 06/10/23 03:42 Folate > 22.30 ng/ml (>5.38) 06/10/23 03:42 POC Stool Occult Blood Positive (Negative) A 06/08/23 07:07 Blood Type B Positive 06/08/23 07:28 Blood Type Recheck B Positive 06/08/23 08:22 Antibody Screen NEGATIVE 06/08/23 07:28 Crossmatch See Detail 06/08/23 07:28 Impressions Abdomen/Pelvis CT 06/08/23 07:[address] WITH IV CONTRAST CT DOSE: 850.01 mGy.cm HISTORY: GI bleed. TECHNIQUE: Multiaxial CT images of the abdomen and pelvis were performed following the use of intravenous contrast. A dose lowering technique was utilized adhering to the principles of ALARA. COMPARISON STUDY: None. FINDINGS: The lung bases are clear. No pneumoperitoneum. No pneumatosis. Levoscoliosis and degenerative changes seen within the lumbar spine. Mitral annulus and coronary artery calcifications are noted. Mild diastases of the rectus abdominous muscles without evidence for a ventral hernia. There is a small gallstone noted. No gallbladder wall thickening. The main portal vein is patent. The liver, pancreas, spleen, and adrenal glands unremarkable. There is a 5 mm hypodense lesion within the right kidney. This is technically too small to characterize but there is a cyst. The left kidney enhances normally. No hydronephrosis. There is a 3.2 cm infrarenal abdominal aortic aneurysm. 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 No retroperitoneal or pelvic lymphadenopathy. No pelvic free fluid. Normal bladder. The prostate gland is enlarged. Colonic diverticulosis. No evidence for acute diverticulitis. No bowel wall thickening or obstruction. Normal appendix. Small amount of intraluminal layering hyperdense focus seen within the distal descending colon as seen on images 148 through 154. This is indeterminate and may represent bowel contents. IMPRESSION: 1. No bowel wall thickening or obstruction. 2. Colonic diverticulosis. No evidence for acute diverticulitis. 3. Small amount of intraluminal layering hyperdense focus seen within the distal descending colon as described above. This is indeterminate and may represent bowel contents. Active arterial extravasation in the setting of a diverticular bleed or less likely angiodysplasia are also considered in the differential diagnosis. 4. Cholelithiasis. 5. A 3.2 cm infrarenal abdominal aortic aneurysm. ACT 112: Negative or not required by law. Electronically signed by: Harry Fan M.D. 06/08/2023 9:08 AM Abdomen/Pelvis CTA 06/08/23 11:39 CT ANGIOGRAPHY OF THE ABDOMEN AND PELVIS CLINICAL HISTORY: GI bleeding COMPARISON STUDY: CT of the abdomen and pelvis performed earlier today. TECHNIQUE: Helical axial images of the abdomen and pelvis were obtained during her ureteral phase following intravenous injection of 119 cc of Optiray 320 IV. Sagittal and coronal reconstructions were viewed as well as maximal intensity projections on an independent 3-D workstation. Automated exposure control was utilized for the study. A dose lowering technique was utilized adhering to the principles of ALARA. FINDINGS: Lung bases are unremarkable. No pneumatosis, free air or portal venous gas is present. There is extensive aortoiliac atherosclerotic plaque. A 3.2 cm infrarenal abdominal aortic aneurysm is present. 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 Right common iliac artery measures 2.4 cm. The left measures 2.1 cm. The major vessels are patent. There is also extensive plaque within the branch vessels. No intraluminal foci of contrast are identified within the bowel on this exam. The intraluminal hyperdensity within the descending colon on CT performed earlier today is no longer identified. This extensive colonic diverticulosis without evidence for acute diverticulitis. There is no evidence for a bowel obstruction. No bowel wall thickening is identified. The appendix is normal. There is no lymphadenopathy. There are no fluid collections. Small gallstone within the gallbladder is present. Arterial phase images of liver, spleen, adrenal glands and pancreas are unremarkable. Contrast within the bladder from recent contrast- enhanced CT is present. The prostate is enlarged, measuring 5.5 cm in transverse diameter. IMPRESSION: 1. No intraluminal contrast within the bowel to suggest active GI bleed on this exam. The hyperdense focus within the descending colon on CT performed earlier today is no longer identified. Therefore, active GI bleed on that exam is favored over intraluminal contents. Lack of visualization on current study could be due to the phase of enhancement or cessation of GI bleed. 2. Extensive colonic diverticulosis. No evidence for acute diverticulitis. 3. No bowel obstruction. No bowel wall thickening. 4. 3.2 cm infrarenal abdominal aortic aneurysms. ACT 112: Negative or not required by law. Electronically signed by: Louis Gaines M.D. 06/08/2023 2:13 PM Ordered Studies 06/08/23 07:25 CT Abd and Pelvis [CT abd pelvis IV con only] Stat 06/08/23 11:39 CTA abdomen pelvis w con [CT angio abdomen pelvis w con] Routine Hospital Course (1) Lower GI bleeding: (2) Paroxysmal atrial fibrillation: (3) Presence of Watchman left atrial appendage closure device: Plan Mr. Winn is a 72 year old year old male with paroxysmal atrial fibrillation and flutter status post ablations on low dose sotalol, and diltiazem, now s/p watchman's device 02/2023, prior GIB requiring transfusions, DMTII, COPD, HTN, BPH and other medical conditions listed below admitted due to melena. Patient with acute blood loss anemia due to what is suspected to be a diverticular bleed. Melena Lower GIB Prior GIB requiring transfusion Acute on Chronic normocytic anemia Likely secondary to diverticulosis --CT ABD:No intraluminal contrast within the bowel to suggest active GI bleed on this exam. The hyperdense focus within the descending colon on CT performed earlier today is no longer identified. Therefore, active GI bleed on that exam is favored over intraluminal contents. Lack of visualization on current study could be due to the phase of enhancement or cessation of GI bleed. Extensive colonic diverticulosis. No evidence for acute diverticulitis. No bowel obstruction. No bowel wall thickening. 3.2 cm infrarenal abdominal aortic aneurysms. -- Previously Eliquis was discontinued --Was recommended to be on ASA/plavix x 6 months, now s/p ~3 months watchman PPI drip discontinued Started on p.o. Protonix daily -Iron Deficiency noted, s/p IV venofer, started on iron supplement --Appreciate GI input --Advised to follow-up with GI/surgery as outpatient if has multiple recurrent diverticular bleeds --Prior provider discussed with cardiology regarding:DAPT, routine recommendation 6months, however in this situation plavix single therapy or CTM? Gi Given melena, aspirin clopidogrel were held. When bleeding resolves, would consider moving forward with monotherapy with aspirin without clopidogrel. Patient is already 3 months removed from device, and aspirin monotherapy would be the typical plan 6 months post device. --Hemoglobin stable, no recurrence of bleeding after resuming aspirin Tolerating regular diet, no recurrence of bleeding Plan to be discharged home today Paroxysmal atrial fibrillation /flutter s/p watchman 03/09/2023, watchman at [facility], recent JAY revealed stable device with no thrombus or leak Continue sotalol 40 mg twice a day along with Diltiazem 180 mg/day. 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 Compensated Hypertension Resume home medications on discharge Monitor BP Dyslipidemia H/O statin intolerance. Continue ezetimibe Hypothyroidism Continue levothyroxine Chronic hyponatremia Stable Sodium 135 today BPH Continue finasteride and tamsulosin monitor for retention COPD Continue home inhaler DM II Continue insulin while hospitalized Monitor BGs DVT SCDs Ambulate Disposition Home Total Time Total Time Spent Total Time Spent (In Minutes): 55 minutes Discharge Plan Discharge Items Patient Disposition: Home - Self-Care Reason For Visit: GIB Discharge Diagnosis: Lower gastrointestinal bleeding Acute on chronic anemia Iron deficiency anemia Diverticulosis Activity: Per Instructions section Exercise/Sports: Wait until after follow-up appointment Non-emergency contact: Primary Care Provider and Methods Engineer Call non-emergency contact if: you have any medication questions, your symptoms worsen, your pain is concerning for you and you have a fever Follow-up/Referrals: Sylvia Quezada MD [Primary Care Provider] - (Date & Time 06/14/2023 1:00 PM Provider Cornelius Branham MD Department Family Medicine [facility] ) Diet: Carb Consistent or DM2 and Low Fiber Addtl Attending Provider Instructions: Follow-up with your primary care physician Damien on 06/14/2023 1:00 PM Follow-up with your social work supervisor/neurosurgeon as needed if you have recurrence of lower GI bleed as recommended Seek immediate medical attention if your symptoms reoccur or worsen Please take all medications as instructed on discharge list below. Please call if you have any questions or problems. You can reach a [facility] hospitalist on duty at [facility] 24 hours a day by calling [phone] Pending Studies at Discharge: No Stand-Alone Forms: My [facility] [email or web address], Smoking Cessation Medications and DC Order Prescriptions: New ferrous sulfate 325 mg (65 mg iron) Tablet,Delayed Release (Dr/Ec) 325 mg PO QAM Qty: 30 1RF pantoprazole 40 mg Tablet,Delayed Release (Dr/Ec) 40 mg PO QAM Qty: 30 1RF Continued lorazepam 1 mg tablet 1 mg PO DAILY PRN (Reason: Pre vasectomy procedure ) Qty: 1 0RF finasteride 5 mg tablet 5 mg PO DAILY Qty: 90 3RF insulin glargine 100 unit/mL solution 20 unit subcut DAILY diltiazem HCl 180 mg capsule,extended release 24hr 180 mg PO DAILY sotalol 80 mg tablet 80 mg PO BID aspirin [Adult Aspirin Regimen] 81 mg tablet,delayed release (DR/EC) 81 mg PO DAILY tamsulosin 0.4 mg capsule 0.4 mg PO DAILY losartan 25 mg tablet 25 mg PO DAILY montelukast 10 mg tablet 10 mg PO DAILY ezetimibe [Zetia] 10 mg tablet 10 mg PO DAILY (DME) Dexcom G6 Sensor Device See Rx Instructions .ROUTE Rx Instructions: As directed levothyroxine 25 mcg capsule 25 mcg PO DAILY fluticasone propion-salmeterol 250-50 mcg/dose blister with device 1 inh INHALATION [facility] albuterol sulfate 90 mcg/actuation HFA aerosol inhaler See Rx Instructions .ROUTE .COMPLEX Rx Instructions: as directed Discontinued clopidogrel [Plavix] 75 mg tablet 75 mg PO DAILY Discharge Orders: Discharge Order (Routine); Ordered 06/11/23 Ordered By: Guillermo Rose/Other Patient Handouts: Managing Type 2 Diabetes Admission Data Admit Date/Time: 06/08/23 08:37 Attending Provider: Guillermo Villalpando Admit Provider: Naa Yepez Primary Care Provider: Sylvia Quezada. Other Providers: Kin Wolf; Ferny Godfrey; Naa Yepez
== END 2023-06-11 13:29 | disposition home or self-care (01) | DRG 378 ==
LOC: ED 06:49 → EDINP 08:37 → SUATTDRO 08:37 → 2N 10:16